=== PATIENT | female | born 1940 | race Caucasian/White ===

== ENCOUNTER → 2016-12-19 | Outpatient (CLI) | payer OTHER ==
[~2016-12-19] MED LIST: CALC1TAB25 PO; LEVO100T7 PO; MULT-513 PO; OREGCAP PO; PRLSR20 PO; SIMV10TA2 PO
[2016-12-19 13:20] LABS: THYROID STIMULATING HORMONE 0.546 uIu/ml (0.300-4.500)
== END | disposition home or self-care (01) ==
LOC: C.LABPBG 09:17
PROVIDERS: ATTEND Physician Assistant
DX: E03.9 Hypothyroidism, unspecified (principal)

== ENCOUNTER → 2017-02-01 | Outpatient (CLI) | payer OTHER ==
[2017-02-01 12:25] LABS: BASO % 0.2 %; BASO ABS # 0.02 K/uL (0-0.2); COMPLETE YES; EOS % 0.7 %; HEMATOCRIT 38.8 % (37-47); IG% 0.1 %; LYMPH % 40.2 %; LYMPH ABS # 3.54 K/uL (1.2-3.4); MEAN CELL VOLUME 93.7 fL (80-100); MEAN CORPUSCULAR HEMOGLOBIN 31.9 pg (25-34); MEAN PLATELET VOLUME 11.4 fL (7.4-10.4); MONO % 6.5 %; NEUT % 52.3 %; PLATELET COUNT 300 K/uL (130-400); RED BLOOD COUNT 4.14 M/uL (4.2-5.4); WHITE BLOOD COUNT 8.81 K/uL (4.8-10.8)
[2017-02-01 13:47] LABS: ALT/SGPT 19 U/L (12-78); AST/SGOT 17 U/L (15-37); BLOOD UREA NITROGEN 21 mg/dl (7-18); BUN/CREATININE RATIO 23.5 (10-20); CALCIUM 8.3 mg/dl (8.5-10.1); CARBON DIOXIDE 27 mmol/L (21-32); CHLORIDE 106 mmol/L (98-107); CREATININE 0.91 mg/dl (0.60-1.20); GLUCOSE 92 mg/dl (70-99); POTASSIUM 3.7 mmol/L (3.5-5.1); SODIUM 142 mmol/L (136-145)
[2017-02-01 13:50] LABS: ALB/GLOB RATIO 1.2 (0.9-2); ALKALINE PHOSPHATASE 66 U/L (45-117); CHOLESTEROL 202 mg/dl (0-200); HDL CHOLESTEROL 50 mg/dl; LDL CHOLESTEROL CALCULATED 121 mg/dl; TRIGLYCERIDES 157 mg/dl (0-150); VERY LOW DENSITY LIPOPROT CALC 31 mg/dl
[2017-02-01 13:55] LABS: THYROID STIMULATING HORMONE 1.06 uIu/ml (0.300-4.500)
== END | disposition home or self-care (01) ==
LOC: C.LABPBG 08:43
PROVIDERS: ATTEND Physician Assistant
DX: E03.9 Hypothyroidism, unspecified (principal); E78.5 Hyperlipidemia, unspecified; M85.80 Other specified disorders of bone density and structure, unspecified site; J45.909 Unspecified asthma, uncomplicated; S52.90XA Unspecified fracture of unspecified forearm, initial encounter for closed fracture; X58.XXXA Exposure to other specified factors, initial encounter

== ENCOUNTER → 2017-05-28 | Outpatient (CLI) | payer OTHER ==
[2017-05-28 12:12] LABS: CALCIUM 9.5 mg/dl (8.5-10.1)
[2017-05-28 12:27] LABS: THYROID STIMULATING HORMONE 0.759 uIu/ml (0.300-4.500)
== END | disposition home or self-care (01) ==
LOC: C.LABPBG 09:46
PROVIDERS: ATTEND Physician Assistant
DX: E03.9 Hypothyroidism, unspecified (principal); E83.51 Hypocalcemia

== ENCOUNTER → 2017-09-04 | Outpatient (CLI) | payer OTHER | END | disposition home or self-care (01) | LOC: C.LABPBG 11:37 | PROVIDERS: ATTEND Physician Assistant | DX: E03.9 Hypothyroidism, unspecified (principal) ==

== ENCOUNTER → 2017-11-29 | Day surgery (SDC) | payer OTHER ==
[2017-11-12 14:36] VITALS: BMI 27.0
[~2017-11-29] VITALS: Ht 162.6 cm; Wt 72.7 kg
[~2017-11-29] MED LIST changes: +CALC-214 PO; -CALC1TAB25 PO; +LIDOCAINE HCL 2% 2 ML VIAL (20MG/ML) ONE; -OREGCAP PO; +PHENYLEPHRINE 100MCG/ML 5ML SYR ONE; +PROPOFOL IV EMULSION 10 MG/ML 20 ML VIAL IV ONE; +SODIUM CHLORIDE 0.9% 500ML 500 ML IV ONE
[2017-11-29 12:47] VITALS: Ht 162.6 cm; Wt 72.7 kg
--- NOTE | 2017-11-29 12:50 | Endo History and Physical ---
History & Physical Date of Service: Nov 29, 2017. Chief Complaint: Screening Referring Physician: Dr. Rigo Rivera History of Present Illness 76 yo CF who presents for screening colonoscopy. Past Surgical History Hx Cardiac Surgery: No Hx Internal Defibrillator: No Hx Pacemaker: No Hx Abdominal Surgery: Yes (HYSTERECTOMY, [place]) Hx of Implantable Prosthesis: No Hx Post-Op Nausea and Vomiting: No Hx Cancer Surgery: No Hx Thoracic Surgery: No Hx Orthopedic: No (EXTERNAL FIXATION OF RT DISTAL RADIUS) Hx Urinary Tract Surgery: No Family History None Social History Smoking Status: Never Smoker Hx Substance Use: No Hx Alcohol Use: No Allergies Coded Allergies: No Known Allergies (Unverified , 11/29/17) Current Medications Reported Home Medications Medications Dose Route/Sig Max Daily Dose Days Date Category Calcium & Magnesium (Calcium W/ Magnesium) 1 Tab Tab 1 Tab PO DAILY AFTER LUNCH 11/12/17 Reported Levothyroxine Sodium 100 Mcg Tab 100 Mcg PO QAM 12/17/15 Reported Mvi With Minerals (Multivitamins/Minerals) Tab 1 Tab PO QAM 12/17/15 Reported Zocor (Simvastatin) 10 Mg Tab 10 Mg PO QPM 12/17/15 Reported Prilosec (Omeprazole) 20 Mg Capcr 20 Mg PO QAM 12/17/15 Reported Vital Signs Weight (Kilograms): 72.73 Height (Feet): 5 Height (Inches): 4 Physical Exam General Appearance: WD/WN, no apparent distress Respiratory/Chest: Auscultation: breath sounds normal Cardiovascular: Heart Auscultation: RRR Abdomen: Bowel Sounds: normal Inspection & Palpation: soft, non-distended, no tenderness, guarding & rebound Assessment and Plan Assessment: 76 yo CF who presents for screening colonoscopy. Plan: Proceed with colonoscopy.
--- NOTE | 2017-11-29 14:00 | Discharge Instructions ---
Endoscopy Patient Instructions Date / Procedure(s) Performed Nov 29, 2017. Colonoscopy Allergy Information Coded Allergies: No Known Allergies (Unverified , 11/29/17) Discharge Date / Findings Nov 29, 2017. Colon polyps Diverticulosis Internal hemorrhoids Medication Instructions Stopped Medication(s): STOPPED ALL MEDICATION OK to resume all medications today as prescribed Reported Home Medications Medications Dose Route/Sig Max Daily Dose Days Date Category Calcium & Magnesium (Calcium W/ Magnesium) 1 Tab Tab 1 Tab PO DAILY AFTER LUNCH 11/12/17 Reported Levothyroxine Sodium 100 Mcg Tab 100 Mcg PO QAM 12/17/15 Reported Mvi With Minerals (Multivitamins/Minerals) Tab 1 Tab PO QAM 12/17/15 Reported Zocor (Simvastatin) 10 Mg Tab 10 Mg PO QPM 12/17/15 Reported Prilosec (Omeprazole) 20 Mg Capcr 20 Mg PO QAM 12/17/15 Reported Provider Instructions Activity Restrictions - No exercising or heavy lifting for 24 hours. - Do not drink alcohol the day of the procedure. - Do not drive a car or operate machinery until the day after the procedure. - Do not make any important decisions or sign important papers in 24 hours after the procedure. Following Day: - Return to full activity which may include returning to work/school. Diet Start your diet with liquids and light foods (jello, soup, juice, toast). Then eat your usual diet if not nauseated. Treatment For Common After Affects For mild abdominal pain, bloating, or excessive gas: - Rest - Eat lightly - Lie on right side Follow-Up Information Follow-up with DR. DAVID SHORT as scheduled Anesthesia Information What You Should Know You have had a procedure that required some medicine to reduce anxiety and discomfort. This treatment is called moderate sedation. After receiving the treatment, you may be sleepy, but you will be able to breathe on your own. The effects of the treatment may last for several hours. Follow these instructions along with Activity/Diet recommendations noted above: * Do NOT do anything where dizziness or clumsiness would be dangerous. * Rest quietly at home today, then you can be up and about tomorrow. * Have a responsible person stay with you the rest of today. * You may have had an I.V. today. If so, you may take the dressing off later today. Recommendations Call your doctor if: * Trouble breathing * Continuous vomiting for more than 24 hours * Temperature above 101 degrees * Severe abdominal pain or bloating * Pain not relieved by pain medicine ordered * There is increased drainage or redness from any incision * A large amount of rectal bleeding greater than 2-3 tablespoons. (If you had a polyp/s removed or have hemorrhoids, a small amount of blood - from the rectum is to be expected.) * You have any unanswered questions or concerns. IN THE EVENT OF A SERIOUS EMERGENCY, GO TO THE NEAREST EMERGENCY ROOM Your discharge instructions were prepared by provider Esteban Dawson. Patient Instructions Signature Page Nallely Fidelina Patient (or Guardian) Signature/Date: I have read and understand the instructions given to me by my caregivers. Caregiver/RN/Doctor Signature/Date: The above-named patient and/or guardian has received patient instructions on this date. + Original Patient Signature Page (only) stays with chart. Please make copy for patient.
--- NOTE | 2017-11-29 14:07 | GI REPORT ---
Procedure Date: 11/29/2017 1:17 PM Procedure: Colonoscopy Indications: Screening for colorectal malignant neoplasm Medicines: Monitored Anesthesia Care Complications: No immediate complications. Estimated Blood Loss: Estimated blood loss: none. Procedure: Pre-Anesthesia Assessment: - Prior to the procedure, a History and Physical was performed, and patient medications and allergies were reviewed. The patient's tolerance of previous anesthesia was also reviewed. The risks and benefits of the procedure and the sedation options and risks were discussed with the patient. All questions were answered, and informed consent was obtained. Prior Anticoagulants: The patient has taken no previous anticoagulant or antiplatelet agents. ASA Grade Assessment: II - A patient with mild systemic disease. After reviewing the risks and benefits, the patient was deemed in satisfactory condition to undergo the procedure. After I obtained informed consent, the scope was passed under direct vision. Throughout the procedure, the patient's blood pressure, pulse, and oxygen saturations were monitored continuously. The scope was introduced through the anus and advanced to the terminal ileum. The colonoscopy was performed without difficulty. The patient tolerated the procedure well. The quality of the bowel preparation was good. The terminal ileum, ileocecal valve, appendiceal orifice, and rectum were photographed. Findings: The perianal and digital rectal examinations were normal. Three sessile polyps were found in the ascending colon. The polyps were 5 to 7 mm in size. These polyps were removed with a hot snare. Resection and retrieval were complete. Multiple small-mouthed diverticula were found in the sigmoid colon. Non-bleeding internal hemorrhoids were found during retroflexion. The hemorrhoids were small. Impression: - Three 5 to 7 mm polyps in the ascending colon, removed with a hot snare. Resected and retrieved. - Diverticulosis in the sigmoid colon. - Non-bleeding internal hemorrhoids. Recommendation: - Resume previous diet. - Continue present medications. - Await pathology results. - Return to primary care physician as previously scheduled. Esteban Dawson, DO 11/29/2017 2:06:49 PM This report has been signed electronically. Note Initiated On: 11/29/2017 1:17 PM I attest to the content of the Intraoperative Record and orders documented therein, exceptions below
[2017-11-29 14:15] VITALS: BP 123/57; PULSE 71; O2SAT 99
--- NOTE | 2017-11-29 14:15 | Anesthesiology Progress Note ---
Anesthesia Post Op Note Date & Time Nov 29, 2017 at 14:15 Vital Signs Pain Intensity: 0 Vital Signs Past 12 Hours Date Time Temp Pulse Resp B/P (MAP) Pulse Ox O2 Delivery O2 Flow Rate FiO2 11/29/17 14:00 66 18 122/64 (83) 98 Room Air 11/29/17 13:42 69 16 114/54 (74) 97 Room Air 11/29/17 12:54 36.8 63 18 147/77 (100) 98 Room Air Notes Mental Status: alert / awake / arousable, participated in evaluation Pt Amnestic to Procedure: Yes Nausea / Vomiting: adequately controlled Pain: adequately controlled Airway Patency, RR, SpO2: stable & adequate BP & HR: stable & adequate Hydration State: stable & adequate Anesthetic Complications: no major complications apparent
== END | disposition home or self-care (01) ==
LOC: C.GI 12:29
PROVIDERS: ATTEND Internal Medicine
DX: Z12.11 Encounter for screening for malignant neoplasm of colon (principal); D12.2 Benign neoplasm of ascending colon; K57.30 Diverticulosis of large intestine without perforation or abscess without bleeding; K63.89 Other specified diseases of intestine; K64.8 Other hemorrhoids; J45.909 Unspecified asthma, uncomplicated; G47.33 Obstructive sleep apnea (adult) (pediatric); K21.9 Gastro-esophageal reflux disease without esophagitis; M19.90 Unspecified osteoarthritis, unspecified site; Z90.710 Acquired absence of both cervix and uterus; Z90.49 Acquired absence of other specified parts of digestive tract

== ENCOUNTER → 2018-04-18 | Outpatient (CLI) | payer OTHER ==
[~2018-04-18] MED LIST changes: -LIDOCAINE HCL 2% 2 ML VIAL (20MG/ML) ONE; -PHENYLEPHRINE 100MCG/ML 5ML SYR ONE; -PROPOFOL IV EMULSION 10 MG/ML 20 ML VIAL IV ONE; -SODIUM CHLORIDE 0.9% 500ML 500 ML IV ONE
[2018-04-18 15:52] LABS: ALBUMIN 3.8 gm/dl (3.4-5.0); ALKALINE PHOSPHATASE 66 U/L (45-117); ALT/SGPT 21 U/L (12-78); AST/SGOT 23 U/L (15-37); BLOOD UREA NITROGEN 19 mg/dl (7-18); CALCIUM 8.8 mg/dl (8.5-10.1); CARBON DIOXIDE 24 mmol/L (21-32); CHOLESTEROL 150 mg/dl (0-200); CREATININE 1.01 mg/dl (0.60-1.20); GLUCOSE 93 mg/dl (70-99); LDL CHOLESTEROL CALCULATED 80 mg/dl; POTASSIUM 4.2 mmol/L (3.5-5.1); SODIUM 140 mmol/L (136-145); TOTAL PROTEIN 7.3 gm/dl (6.4-8.2)
== END | disposition home or self-care (01) ==
LOC: C.LABPBG 07:55
PROVIDERS: ATTEND Physician Assistant
DX: E03.9 Hypothyroidism, unspecified (principal); E78.5 Hyperlipidemia, unspecified; M85.80 Other specified disorders of bone density and structure, unspecified site; J45.909 Unspecified asthma, uncomplicated; S52.90XA Unspecified fracture of unspecified forearm, initial encounter for closed fracture; X58.XXXA Exposure to other specified factors, initial encounter; E83.51 Hypocalcemia

== ENCOUNTER 2024-09-11 13:32 | Inpatient (IN) ==
--- NOTE | 2024-09-11 14:03 | Emergency Department Note ---
Impression & Plan Chronic lymphocytic leukemia, Splenic infarct, Abdominal pain, Fatigue, Leukocytosis, Pain, Decreased energy ED Provider Note CHIEF COMPLAINT: Abdominal pain HISTORY OF PRESENTING ILLNESS: The patient is an 83-year-old female with a history of CLL presents to the emergency department today with her daughter regarding left upper quadrant pain. The daughter confirms that her mother's pain is significantly worse today. Daughter also confirms that mother has been feeling very fatigued and laying around often, no longer has much of an appetite and she is only drinking ensures, abdominal pain is not controlled with 5 mg oxycodone prescribed by oncologist, and that she is not able to project her voice as well. Denies fevers, chest pain, shortness of breath, nausea, vomiting, diarrhea, constipation. REVIEW OF SYSTEMS: See HPI for pertinent positives and pertinent negatives. ALLERGIES: Amitriptyline, nortriptyline MEDICATIONS: See below PAST MEDICAL HISTORY: See below PHYSICAL EXAM: VITALS: Vitals are noted on the nurse's note and reviewed by myself. Vital signs stable. GENERAL: 83-year-old female, in no acute distress, nondiaphoretic, well- developed well-nourished. SKIN: Capillary reflex less than 2 seconds. HEENT: Normocephalic. PERRLA. EOMI. Nares patent. Mucous membranes moist. Neck is supple without nuchal rigidity. HEART: Regular rate and rhythm without murmurs gallops or rubs. LUNGS: Clear to auscultation bilaterally without wheezes, rales or rhonchi. No retractions or accessory muscle use. ABDOMEN: Positive bowel sounds x 4. Normal tympanic percussion. Tenderness to left upper quadrant palpation. Soft, without masses or organomegaly. No guarding or rebound tenderness. Patient appears uncomfortable. MUSCULOSKELETAL: No gross musculoskeletal defects. No pedal edema. No calf tenderness. NEURO: Patient was alert and oriented to person place and time. No focal neurological deficits. DIFFERENTIAL DIAGNOSIS: appendicitis, diverticulitis, bowel obstruction, inflammatory bowel disease, renal colic, PUD, biliary pathology, pancreatitis, mesenteric ischemia, aortic pathology, infection, genitourinary, UTI, perforated viscus, malignancy complication, among others. ED COURSE AND MEDICAL DECISION MAKING: HISTORY FROM INDEPENDENT HISTORIAN: The patient, the patient's two daughters. MEDICATIONS GIVEN: Oxycodone 5 mg INTERPRETATION OF LABS: I interpreted the labs with full lab results as below in the lab section of this note. Pertinent lab results discussed in the MDM section below. INTERPRETATION OF IMAGING: Imaging studies were interpreted by myself and read by radiology as per the imaging section of this note. CT abdomen and pelvis IV contrast - acute splenic infarct, new from previous scan completed on 09/05/2024 with chronic splenic vein occlusion. - Disease of the lower chest and abdomen -generally unchanged from previous scan completed on 09/05/2024. - Healing subacute nondisplaced pathological fracture of the left lateral 10th rib. - Small left pleural effusion is unchanged. EXTERNAL RECORDS REVIEWED: Previous CT scan reviewed. CHRONIC MEDICAL/SOCIAL CONDITIONS AFFECTING CARE: CLL and other chronic conditions. ESCALATION OF CARE CONSIDERED: Escalation of care was considered due to the patient's presentation and new onset left upper abdominal pain as well as progressive CLL disease. With the daughter confirming the patient's newer onset fatigue, lethargy, lack of appetite, as well as daughter confirming her not feeling well to project her voice and feelings as well admission was also considered. I did confirm with Dr. Dietz that her patient was being seen here in the emergency department and she updated me on the patient's care and that her disease has been progressing rapidly. She also voiced wanting the patient to be admitted for overnight care, monitoring, pain management, and potential biopsy completed in the hospital tomorrow. CONSULTATIONS: [facility] hospitalist team -consultation was placed regarding overnight stay and management of the patient. I had a thorough discussion with the admitting doctor regarding her progressive CLL disease as well as my discussion had with Dr. Dietz, new onset weakness/fatigue, minimal food intake, as well as new CT finding of a splenic infarct. I did discuss the CT findings with my attending in the emergency department Dr. Armijo who confirmed that splenic infarct is not a finding that is surgically emergent or needing attention at this time. We did discuss that this new onset pain may be related to her large infiltrative splenic mass but that further investigation and management is required in the inpatient setting at this time. Dr. Dietz - I did personally reach out provider regarding her patient's care. She stated that her disease is progressing rapidly and she was actually scheduled for a biopsy next week. I explained to her the new onset presenting symptoms and her presentation in the emergency department. Her and I had a thorough discussion regarding her management and both agreed to admission, pain control, and monitoring overnight. She stated that she would place orders for biopsies planned for next week to be done in the hospital hopefully tomorrow. I did notify her that many plans changed I would let her know. MDM SUMMARY: The patient is an 83-year-old female with a history of progressing CLL that presents to the emergency department with her daughter regarding left upper abdominal pain. The daughter confirms that this is a new onset worsening pain but does confirm that she at baseline has some pain due to large infiltrative splenic mass. Patient looks in moderate discomfort on physical exam holding left abdomen. States she took 5 mg oxycodone this morning and after discussion of pain management requests another. On physical exam abdomen is tender in the left upper quadrant. Soft without guarding or rebound. Patient is afebrile and vitals are stable. Due to new onset worsening pain another CT abdomen and pelvis was ordered. Daughter confirms that they see Dr. Dietz which can be seen in detail above. The patient's daughters stated that they really trust her opinion and had her that she was coming into the emergency department today. I informed them of my conversation that I had with her regarding the patient's care. They also agreed to plans of admitting their mother overnight for further investigation of pain, management, due to new onset weakness/fatigue. CT scan abdomen pelvis showed similar findings from previous scan on 09/05/2024. The patient does have a large infiltrative splenic mass that she was aware of. 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 This finding was reviewed with my attending Dr. Armijo who confirmed that this is not acutely emergent or surgical at this time. This was also reported to the hospitalist team upon admission. Basic labs, lipase, and urinalysis were also ordered upon arrival to the emergency department. White blood cell count elevated 78.44 -this has been chronically elevated due to CLL. No electrolyte abnormalities. BUN elevated 28 - compared to previous lab results and between 25 and 28 within the last year. Lipase normal. Urinalysis demonstrates trace urine protein, urine blood, 2+ urine leukocyte esterase, >50 WBC, >20 RBC, urine bacteria 4+, and calcium oxalate crystals present. Patient denies all urinary symptoms such as urgency, frequency, and pain with urination. I did reevaluate stated that her pain was feeling better after taking the oral oxycodone She stated that she was more comfortable laying down in bed. I had a discussion with both daughters regarding my admission discussion with the hospitalist team. I thoroughly reviewed lab results and image findings that were obtained here in the emergency department with the patient and her daughters. I did inform them that the remainder of her care would be up to the discretion of the hospitalist team in which she was admitted to. I also informed them that Dr. Dietz put in orders for the biopsies that she was supposed to have next week and attempt to get them in the hospital. They were able to ask questions. At this time the patient was handed over to the hospitalist team, vitals were stable. DIAGNOSIS: Chronic lymphocytic leukemia, splenic infarct, abdominal pain, fatigue, leukocytosis, pain, decreased energy The chart was completed utilizing [employer] Speech voice recognition software. Grammatical errors, random word insertions, pronoun errors, and incomplete sentences are an occasional consequence of this system due to software limitations, ambient noise, and hardware issues. Any formal questions or concerns about the content, text, or information contained within the body of this dictation should be directly addressed to the provider for clarification. Past Med/Surg History Problem List (Updated 09/11/24 @ 19:55 by aJnis Cruz PA-C) Decreased energy (Acute) Pain (Acute) Leukocytosis (Acute) Fatigue (Acute) Abdominal pain (Acute) Splenic infarct (Acute) Chronic lymphocytic leukemia (Acute) Splenic infarct SALAS (iron deficiency anemia) Osteoporosis Vascular dementia CLL (chronic lymphocytic leukemia) (07/2021) Prediabetes Urinary incontinence Asthma Diverticulosis Dyslipidemia Gastroesophageal reflux disease Hearing loss Hypothyroidism Internal hemorrhoids Irritable bowel syndrome Melanosis coli Mild cognitive impairment Obstructive sleep apnea Tinnitus Tubular adenoma of colon Medical History Hx of compression fracture of spine (~05/19/23) lumbar compression fracture-L1 History of colon polyps Lumbar compression fracture ~04/2023 Poor historian Surgical History Hx of colonoscopy H/O kyphoplasty (05/2023) L1, L4 H/O cataract extraction S/P nasal surgery excision of cyst R side of nose S/P ORIF (open reduction internal fixation) fracture R wrist S/P hysterectomy S/P cholecystectomy Family History Father Prostate cancer Mother Lung disease Denies family history of Ovarian cancer Myocardial infarction Breast cancer Colorectal cancer Social History Smoking Status: Never smoker Second Hand Exposure: No; Do You Dip or Chew Tobacco: No; Hx Alcohol Use: No Hx Substance Use: No Preferred Language: Macedonian Communication Ability: Effective Communication Ability Comment: mild cognitive impairment Visual Impairment: No Limitations Hearing Ability: Hard of Hearing Manager Chinese Required: No Beliefs That Will Affect Care: None marital status: Current Living Situation: Spouse current occupational status: retired Feels Safe at Home: Yes Childhood Exposure to Second-Hand Smoke: No Diet: regular Diet Comment: Regular caffeine: Yes during the past year weight has: remained stable Dental Care, Regularly: Yes Physical Activity Frequency: 5-6 Times per Week Seatbelt Use: always Sunscreen Use: No Assistive Devices: Glasses Allergies Allergies Allergy/AdvReac Type Severity Reaction Status Date / Time amitriptyline [From Elavil] AdvReac Unknown CAN'T Verified 06/06/24 09:07 REMEMBER nortriptyline [From Pamelor] AdvReac Unknown CAN'T Verified 06/06/24 09:07 REMEMBER Home Meds Home Medications Medication Instructions Recorded Confirmed aspirin 81 mg capsule 81 mg PO HS 06/02/24 09/11/24 ibandronate 150 mg tablet 150 mg PO UD 06/19/24 09/11/24 mirtazapine 15 mg tablet 15 mg PO HS 07/30/24 09/11/24 zanubrutinib 80 mg capsule 160 mg PO BID 07/30/24 09/11/24 (Brukinsa) allopurinol 300 mg tablet 300 mg PO DAILY 09/11/24 09/11/24 donepezil 10 mg tablet 10 mg PO HS 09/11/24 09/11/24 megestrol 40 mg tablet 40 mg PO BID 09/11/24 09/11/24 omeprazole 40 mg capsule,delayed 40 mg PO HS 09/11/24 09/11/24 release oxycodone 5 mg tablet 5 mg PO .EVERY 4-6 HRS PRN Pain 09/11/24 09/11/24 Previous Rx's Medication Instructions Recorded albuterol sulfate 90 mcg/actuation 2 puff inhalation Q6H PRN 06/23/24 aerosol inhaler shortness of breath or wheezing #8.5 grams levothyroxine 75 mcg tablet 75 mcg PO DAILY #30 tabs 08/26/24 Results & Data (ED) Vital Signs Vital Signs - 24 hr 09/11/24 13:38 09/11/24 15:07 09/11/24 16:20 Temperature 36.5 C Temperature Source Temporal Artery Scan Pulse Rate 86 Pulse Rate [Finger] 75 83 Respiratory Rate 20 16 16 Respiratory Effort / Characteristics Non-Labored Spontaneous Non-Labored Spontaneous Non-Labored Spontaneous Respiratory Depth Normal Normal Normal Respiratory Pattern Regular Regular Blood Pressure 125/70 Blood Pressure [Right Arm] 139/85 126/68 Blood Pressure Mean 88 Blood Pressure Mean [Right Arm] 103 87 Blood Pressure Position [Right Arm] Semi-fowlers Semi-fowlers Pulse Oximetry 98 99 98 Oxygen Delivery Method Room Air Room Air Room Air Sepsis Recent Fever Within 48 Hours No Sepsis New/Unexplained Change in Mental Status No Sepsis Action Taken by Nursing No Action Required 09/11/24 17:41 09/11/24 19:17 Temperature Temperature Source Pulse Rate Pulse Rate [Finger] 83 85 Respiratory Rate 18 16 Respiratory Effort / Characteristics Non-Labored Spontaneous Respiratory Depth Normal Normal Respiratory Pattern Regular Blood Pressure Blood Pressure [Right Arm] 106/50 L 111/66 Blood Pressure Mean Blood Pressure Mean [Right Arm] 68 81 Blood Pressure Position [Right Arm] Pulse Oximetry 97 97 Oxygen Delivery Method Room Air Room Air Sepsis Recent Fever Within 48 Hours Sepsis New/Unexplained Change in Mental Status Sepsis Action Taken by Nursing Laboratory Data 09/11/24 14:35 09/11/24 14:35 Lab Results 09/11/24 09/11/24 Range/Units 14:35 16:21 WBC 78.44 H* (4.8-10.8) K/ul RBC 4.14 L (4.20-5.40) M/uL Hgb 12.4 (12.0-16.0) g/dl Hct 39.0 (37.0-47.0) % MCV 94.2 (80.0-100.0) fL MCH 30.0 (25.0-34.0) pg MCHC 31.8 L (32.0-36.0) g/dL RDW Std Deviation 48.4 H (36.4-46.3) fL RDW Coeff of Harsh 14.1 (11.5-14.5) % Plt Count 381 (130-400) K/uL MPV 12.0 (9.4-12.4) fL Immature Gran % (Auto) 0.3 % Neut % (Auto) 13.7 % Lymph % (Auto) 84.0 % Ransom % (Auto) 1.6 % Eos % (Auto) 0.3 % Baso % (Auto) 0.1 % Neut # (Auto) 10.74 H (1.40-6.50) K/uL Lymph # (Auto) 65.87 H (1.20-3.40) K/uL Ransom # (Auto) 1.29 H (0.11-0.59) K/uL Eos # (Auto) 0.23 (0.00-0.50) K/uL Baso # (Auto) 0.10 (0.00-0.20) K/uL Immature Gran # (Auto) 0.21 H (0.01-0.20) K/uL Sodium 137 (136-145) mmol/L Potassium 4.0 (3.5-5.1) mmol/L Chloride 100 (98-107) mmol/L Carbon Dioxide 29 (21-32) mmol/L Anion Gap 8 (3-11) BUN 28 H (6-23) mg/dl Creatinine 0.76 (0.6-1.2) mg/dl Est Cr Clr Drug Dosing 45.6 ml/min eGFR 77.22 BUN/Creatinine Ratio 36.8 H (10-20) Glucose 163 H (70-99(Fasting)) mg/dl Uric Acid 3.1 (2.6-7.2) mg/dl Calcium 9.5 (8.6-10.3) mg/dl Total Bilirubin 0.3 (0.2-1.0) mg/dl AST 18 (13-39) U/L ALT 8 (7-52) U/L Alkaline Phosphatase 67 (34-104) U/L Total Protein 7.2 (6.0-8.3) gm/dl Albumin 3.8 (3.4-5.0) gm/dl Globulin 3.4 (2.5-4.0) gm/dl Albumin/Globulin Ratio 1.1 (0.9-2) Lipase 11 (11-82) U/L Urine Color Yellow Urine Appearance Cloudy A (Clear) Urine pH 6.0 (4.5-7.5) Ur Specific [place] 1.038 H (1.000-1.030) Urine Protein Trace H (Negative) Urine Glucose (UA) Negative (Negative) Urine Ketones Negative (Negative) Urine Blood 2+ H (Negative) Urine Nitrite Negative (Negative) Urine Bilirubin Negative (Negative) Urine Urobilinogen Negative (Negative) Ur Leukocyte Esterase 2+ H (Negative) Urine WBC (Auto) >50 H (0-5) /hpf Urine RBC (Auto) >20 H (0-2) /hpf U Hyaline Cast (Auto) 0-2 (0-2) /lpf U Epithel Cells (Auto) 0-2 (0-2) /hpf Urine Bacteria (Auto) 4+ H (None Seen) Calcium Oxalate Crystal Present A (None Prsent) Administered Medications Discontinued Medications Ioversol (Optiray 320 100ml) 93 ml IV ONCE ONE Stop: 09/11/24 15:42 Last Admin: 09/11/24 15:42 Dose: 93 ml Documented By: BABITA Oxycodone HCl (Oxycodone Hcl Ir 5 Mg Tab (Immediate Release)) 5 mg PO NOW STA Stop: 09/11/24 14:17 Last Admin: 09/11/24 15:12 Dose: 5 mg Documented By: ONESIMO Imaging Data Radiologist's Impression: Abdomen/Pelvis CT 09/11/24 14:[address] WITH IV CONTRAST CT DOSE: 520.21 mGy.cm HISTORY: Left-sided abdominal pain in a patient with history of CLL left sided ab pain TECHNIQUE: Multiaxial CT images of the abdomen and pelvis were performed following the IV administration of 93 cc of Optiray, A dose lowering technique was utilized adhering to the principles of ALARA. COMPARISON STUDY: 09/05/2024, 06/25/2024. FINDINGS: Trace left pleural effusion. Enhancing subpleural/intercostal masses are redemonstrated This includes a 3.5 cm mass on image 45 series 3 (previously 1.5 cm on the June 19 study) and a 3.7 cm mass on image 101 series 3 (previously subcentimeter on the June 19 study). No pneumatosis or pneumoperitoneum. Unremarkable liver. Cholecystectomy. Patent portal vein. Duodenal diverticula. Symmetric enhancement of the kidneys. Bilateral renal sinus cysts. No definite hydronephrosis. Chronic occlusion of the splenic vein. Large infiltrative splenic mass measuring 10 x 6 x 6 cm on image 82 series 7 is similar in size to prior. Again, this demonstrates extracapsular extension with mild adjacent inflammatory stranding. There is progressive linear well- demarcated decreased attenuation of the spleen as seen on image 81 series 3 which is new/progressed from prior. A 3.4 cm mass, anterior to the spleen redemonstrated. Pathologic lymphadenopathy with areas of central necrosis are again seen. This includes an index periaortic 2.0 x 2.1 cm lymph node on image 139. Adenopathy within the silvia hepatis includes a 4.6 x 3.4 cm lesion on image 95. A 3.4 x 2.9 x 3.8 cm lesion within the left retroperitoneum, inferior and posterior to the left kidney again seen on image 179. Urinary bladder wall thickening with partial distention. Hysterectomy. Right adnexal 3.6 cm cystic lesion is unchanged. Atherosclerosis of the aorta without aneurysm. Soft tissue thickening within the right perineum/vaginal introitus distribution is asymmetric on the right and similar to prior. Pelvic floor relaxation. Colonic diverticulosis. No bowel obstruction or bowel wall thickening. Normal appendix. Healing subacute nondisplaced pathologic fracture of the lateral left 10th rib. Chronic L1 and L4 compression deformities with kyphoplasty changes. IMPRESSION: 1. Acute splenic infarct, new from 09/05/2024 with chronic splenic vein occlusion. 2. Disease of the lower chest and abdomen are redemonstrated as above, generally unchanged from the 09/05/2024 study which showed progression compared to 06/25/2024. 3. Healing subacute nondisplaced pathologic fracture of the lateral left 10th rib. 4. Small left pleural effusion is unchanged. 5. Additional findings as above. ACT 112: Negative or not required by law. The above report was generated using voice recognition software. It may contain grammatical, syntax or spelling errors. Electronically signed by: Donny Morales M.D. 09/11/2024 4:03 PM Discharge Plan Visit Data Chief Complaint: Abdominal Pain Stated Complaint: REF BY DOC, ABD PAIN, WEAKNESS ED Provider: David Armijo ED Midlevel Provider: Janis Cruz Discharge Problem: Chronic lymphocytic leukemia, Splenic infarct, Abdominal pain, Fatigue, Leukocytosis, Pain, Decreased energy Patient Disposition: Admitted As Inpatient Condition: Good Forms Stand Alone Forms: My [facility] Quizrr Prescriptions Prescriptions: No Action Brukinsa 80 mg capsule 160 mg PO BID mirtazapine 15 mg tablet 15 mg PO HS albuterol sulfate 90 mcg/actuation HFA aerosol inhaler 2 puff inhalation Q6H PRN (Reason: shortness of breath or wheezing) Qty: 8.5 1RF levothyroxine 75 mcg tablet 75 mcg PO DAILY Qty: 30 3RF ibandronate 150 mg tablet 150 mg PO UD Rx Instructions: 150 mg po monlthy no fill history available allopurinol 300 mg tablet 300 mg PO DAILY oxycodone 5 mg tablet 5 mg PO .EVERY 4-6 HRS PRN (Reason: Pain) omeprazole 40 mg capsule,delayed release(DR/EC) 40 mg PO HS megestrol 40 mg tablet 40 mg PO BID donepezil 10 mg tablet 10 mg PO HS aspirin 81 mg Capsule 81 mg PO HS Referrals Referrals: Ale Aguilera DO [Primary Care Provider] - Discharge Problem: Abdominal pain Qualifiers: Abdominal location: left upper quadrant Qualified Code(s): R10.12 - Left upper quadrant pain Fatigue Qualifiers: Fatigue type: unspecified Qualified Code(s): R53.83 - Other fatigue Leukocytosis Qualifiers: Leukocytosis type: unspecified Qualified Code(s): D72.829 - Elevated white blood cell count, unspecified
[2024-09-11 15:12] LABS: Albumin Globulin Ratio 1.1 (0.9-2); Albumin Level 3.8 gm/dl (3.4-5.0); BUN Creatinine Ratio 36.8 (10-20); Bilirubin,Total 0.3 mg/dl (0.2-1.0); Calcium 9.5 mg/dl (8.6-10.3); Creatinine Clr Calc Pharmacy 45.6 ml/min; Globulin 3.4 gm/dl (2.5-4.0); Total Protein 7.2 gm/dl (6.0-8.3); Uric Acid 3.1 mg/dl (2.6-7.2)
[2024-09-11] MEDS: oxyCODONE HCL IR 5 MG TAB (IMMEDIATE RELEASE) PO STA (15:12)
[2024-09-11] MEDS: OPTIRAY 320 100ml IV ONE (15:42)
[2024-09-11 15:57] LABS: Basophils % (auto) 0.1 %; Eosinophils # (auto) 0.23 K/uL (0.00-0.50); Eosinophils % (auto) 0.3 %; Hemoglobin 12.4 g/dl (12.0-16.0); Immature Granulocytes # (auto) 0.21 K/uL (0.01-0.20); Immature Granulocytes % (auto) 0.3 %; Lymphocytes # (auto) 65.87 K/uL (1.20-3.40); Mean Corpuscular Hgb Conc 31.8 g/dL (32.0-36.0); Mean Corpuscular Volume 94.2 fL (80.0-100.0); Monocytes # (auto) 1.29 K/uL (0.11-0.59); Monocytes % (auto) 1.6 %; Neutrophils # (auto) 10.74 K/uL (1.40-6.50); Neutrophils % (auto) 13.7 %; Platelet Count 381 K/uL (130-400); RDW Coefficient of Variation 14.1 % (11.5-14.5); RDW Standard Deviation 48.4 fL (36.4-46.3); Red Blood Count 4.14 M/uL (4.20-5.40); White Blood Count 78.44 K/ul (4.8-10.8)
--- NOTE | 2024-09-11 16:04 | CT Scan Report ---
ABDOMEN AND PELVIS CT WITH IV CONTRAST CT DOSE: 520.21 mGy.cm HISTORY: Left-sided abdominal pain in a patient with history of CLL left sided ab pain TECHNIQUE: Multiaxial CT images of the abdomen and pelvis were performed following the IV administrat ion of 93 cc of Optiray, A dose lowering technique was utilized adhering to the principles of ALARA. COMPARISON STUDY: 09/05/2024, 06/25/2024. FINDINGS: Trace left pleural effusion. Enhancing subpleural/intercostal masses are redemonstrated Thi s includes a 3.5 cm mass on image 45 series 3 (previously 1.5 cm on the June 19 study) and a 3.7 c m mass on image 101 series 3 (previously subcentimeter on the June 19 study). No pneumatosis or p neumoperitoneum. Unremarkable liver. Cholecystectomy. Patent portal vein. Duodenal diverticula. Symme tric enhancement of the kidneys. Bilateral renal sinus cysts. No definite hydronephrosis. Chronic occ lusion of the splenic vein. Large infiltrative splenic mass measuring 10 x 6 x 6 cm on image 82 series 7 is similar in size to pr ior. Again, this demonstrates extracapsular extension with mild adjacent inflammatory stranding. Ther e is progressive linear well-demarcated decreased attenuation of the spleen as seen on image 81 serie s 3 which is new/progressed from prior. A 3.4 cm mass, anterior to the spleen redemonstrated. Patholo gic lymphadenopathy with areas of central necrosis are again seen. This includes an index periaortic 2.0 x 2.1 cm lymph node on image 139. Adenopathy within the silvia hepatis includes a 4.6 x 3.4 cm les ion on image 95. A 3.4 x 2.9 x 3.8 cm lesion within the left retroperitoneum, inferior and posterior to the left kidney again seen on image 179. Urinary bladder wall thickening with partial distention. Hysterectomy. Right adnexal 3.6 cm cystic le gino is unchanged. Atherosclerosis of the aorta without aneurysm. Soft tissue thickening within the r ight perineum/vaginal introitus distribution is asymmetric on the right and similar to prior. Pelvic floor relaxation. Colonic diverticulosis. No bowel obstruction or bowel wall thickening. Normal appen ghada. Healing subacute nondisplaced pathologic fracture of the lateral left 10th rib. Chronic L1 and L 4 compression deformities with kyphoplasty changes. IMPRESSION: 1. Acute splenic infarct, new from 09/05/2024 with chronic splenic vein occlusion. 2. Disease of the lower chest and abdomen are redemonstrated as above, generally unchanged from the study which showed progression compared to 06/25/2024. 3. Healing subacute nondisplaced pathologic fracture of the lateral left 10th rib. 4. Small left pleural effusion is unchanged. 5. Additional findings as above. ACT 112: Negative or not required by law. The above report was generated using voice recognition software. It may contain grammatical, syntax o r spelling errors. Electronically signed by: Donny Morales M.D. 09/11/2024 4:03 PM
--- NOTE | 2024-09-11 16:21 | Emergency Department Note ---
ED Visit Note I was consulted by the Advanced Practice Provider. The case was discussed at length. I personally made/approved the management plan and take responsibility for the patient management. I performed a substantive portion of the visit. This includes the aspects of: Patient is weak. She has a new finding of a splenic infarct on CT imaging. She does have pain in the left upper quadrant. The case was discussed with hematology/oncology. Hospitalization was felt warranted. .
[2024-09-11 16:52] LABS: Appearance Urine Cloudy (Clear); Bacteria Urine Automated 4+ (None Seen); Bilirubin Urine Negative (Negative); Blood Urine 2+ (Negative); Calcium Oxalate Crystals Urine Present (None Prsent); Cast Urine Automated 0-2 /lpf (0-2); Color Urine Yellow; Epithelial Cell Urine Auto 0-2 /hpf (0-2); Glucose Urine UA Negative (Negative); Ketones Urine Negative (Negative); Leukocyte Esterase Urine 2+ (Negative); Nitrite Urine Negative (Negative); Protein Urine Trace (Negative); RBC Urine Automated >20 /hpf (0-2); Specific Gravity Urine 1.038 (1.000-1.030); Urobilinogen Urine Negative (Negative); WBC Urine Automated >50 /hpf (0-5)
--- NOTE | 2024-09-11 18:42 | History & Physical Report ---
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 -pain control with oxycodone (2) CLL (chronic lymphocytic leukemia): Plan: -Heme-onc Dr. Dietz consulted -on zanubrutinib (3) Asthma: Plan: -albuterol prn (4) Hypothyroidism: Plan: -levothyroxine Plan Admit to Med-surg tele DVT px with heparin SQ PT/OT evaluation History of Present Illness Chief Complaint: Abdominal Pain Primary Care Provider: Ale Aguilera DO Pt is an 83 y/o female with pmh of CLL, asthma, HLD, hypothyroidism, IBS, who presents with increasing fatigue, generalized weakness and abdominal pain. Pt has been followed by Dr. Dietz for treatment of her CLL. 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 Pt complaining of left sided abdominal pain on examination over the past week. She has an appetite and denies any nausea or vomiting. She is being admitted for further pain control with follow up by heme-onc along with PT evaluation for ambulatory dysfunction due to progressive weakness. Allergies Allergy/AdvReac Type Severity Reaction Status Date / Time amitriptyline [From Elavil] AdvReac Unknown CAN'T Verified 06/06/24 09:07 REMEMBER nortriptyline [From Pamelor] AdvReac Unknown CAN'T Verified 06/06/24 09:07 REMEMBER Home Medications Medication Instructions Recorded Confirmed Type aspirin 81 mg capsule 81 mg PO HS 06/02/24 09/11/24 History ibandronate 150 mg tablet 150 mg PO UD 06/19/24 09/11/24 History albuterol sulfate 90 mcg/actuation 2 puff inhalation Q6H PRN 06/23/24 09/11/24 Rx aerosol inhaler shortness of breath or wheezing #8.5 grams mirtazapine 15 mg tablet 15 mg PO HS 07/30/24 09/11/24 History zanubrutinib 80 mg capsule 160 mg PO BID 07/30/24 09/11/24 History (Brukinsa) levothyroxine 75 mcg tablet 75 mcg PO DAILY #30 tabs 08/26/24 09/11/24 Rx allopurinol 300 mg tablet 300 mg PO DAILY 09/11/24 09/11/24 History donepezil 10 mg tablet 10 mg PO HS 09/11/24 09/11/24 History megestrol 40 mg tablet 40 mg PO BID 09/11/24 09/11/24 History omeprazole 40 mg capsule,delayed 40 mg PO HS 09/11/24 09/11/24 History release oxycodone 5 mg tablet 5 mg PO .EVERY 4-6 HRS PRN Pain 09/11/24 09/11/24 History Past Med/Surg History Problem List (Updated 09/11/24 @ 18:40 by Dewayne Ann MD) Splenic infarct SALAS (iron deficiency anemia) Osteoporosis Vascular dementia CLL (chronic lymphocytic leukemia) (07/2021) Prediabetes Urinary incontinence Asthma Diverticulosis Dyslipidemia Gastroesophageal reflux disease Hearing loss Hypothyroidism Internal hemorrhoids Irritable bowel syndrome Melanosis coli Mild cognitive impairment Obstructive sleep apnea Tinnitus Tubular adenoma of colon Medical History (Updated 09/11/24 @ 18:40 by Dewayne Ann MD) Hx of compression fracture of spine (~05/19/23) lumbar compression fracture-L1 History of colon polyps Lumbar compression fracture ~04/2023 Poor historian Surgical History Hx of colonoscopy H/O kyphoplasty (05/2023) L1, L4 H/O cataract extraction S/P nasal surgery excision of cyst R side of nose S/P ORIF (open reduction internal fixation) fracture R wrist S/P hysterectomy S/P cholecystectomy Family History Father Prostate cancer Mother Lung disease Denies family history of Ovarian cancer Myocardial infarction Breast cancer Colorectal cancer Social History Smoking Status: Never smoker Second Hand Exposure: No; Do You Dip or Chew Tobacco: No; Hx Alcohol Use: No Hx Substance Use: No Preferred Language: Tamazight Communication Ability: Effective Communication Ability Comment: mild cognitive impairment Visual Impairment: No Limitations Hearing Ability: Hard of Hearing Laboratory Chemist Required: No Beliefs That Will Affect Care: None marital status: Current Living Situation: Spouse current occupational status: retired Feels Safe at Home: Yes Childhood Exposure to Second-Hand Smoke: No Diet: regular Diet Comment: Regular caffeine: Yes during the past year weight has: remained stable Dental Care, Regularly: Yes Physical Activity Frequency: 5-6 Times per Week Seatbelt Use: always Sunscreen Use: No Assistive Devices: Glasses Review of Systems Review of Systems: CONST: Negative for fever, body aches and chills. HENT: Negative for neck pain/stiffness, headache, congestion, sore throat, swelling. EYES: Negative for discharge/pain or vision changes. RESP: Negative for cough/hemoptysis and shortness of breath. CV: Negative chest pain, difficulty breathing, palpitations. ABD: Negative pain, nausea, vomiting. : Negative increase frequency, dysuria, blood in urine or stool. MUSC: Negative for muscle aches, edema. SKIN: Negative rash, lesions/sores. NEURO: Negative headache, dizziness, weakness. Physical Exam Physical Exam: GENERAL APPEARANCE NAD, activity normal for age, well developed/ well nourished, no cyanosis, pallor, or diaphoresis. EYES lids/conjunctiva normal. EARS/NOSE/THROAT Mucous membranes moist, nares normal, lips/teeth normal uvula midline without oral pharyngeal erythema, exudate or swelling TMs normal bilaterally. No lymphangitis/lymphedema. HEAD/NECK normocephalic atraumatic, no facial trauma, neck is supple. RESPIRATORY respiratory effort normal, speaks in full sentences, no tripod position, no accessory muscle use. Lungs clear to auscultation without rhonchi, wheezes, rales CARDIAC Regular rate and rhythm, no edema. ABDOMINAL Soft, ND/NT. No evidence of fluid wave. No pulsatile masses on exam, rebound tenderness, Muro sign or pain over Mcburney's point. MUSCLES/EXTREMITIES No abnormal range of motion, no swelling. SKIN Warm, pink and dry. No rashes, dermatoses, petechiae or lesions. NEUROLOGICAL Speech is clear and appropriate. Normal level of consciousness. Gait and coordination are normal. 5/5 strength in all extremities. PSYCH Normal mood and affect. Judgement/competence is appropriate Results & Data Results & Data Vital Signs (Past 12 Hours) Vital Signs Temp Pulse Pulse Resp BP BP Pulse Ox 09/11/24 17:41 83 18 106/50 L 97 09/11/24 16:20 83 16 126/68 98 09/11/24 15:07 75 16 139/85 99 09/11/24 13:38 36.5 C 86 20 125/70 98 O2 Del Method 09/11/24 17:41 Room Air 09/11/24 16:20 Room Air 09/11/24 15:07 Room Air 09/11/24 13:38 Room Air Laboratory Results Abnormal lab results 09/11/24 09/11/24 Range/Units 14:35 16:21 WBC 78.44 H* (4.8-10.8) K/ul RBC 4.14 L (4.20-5.40) M/uL MCHC 31.8 L (32.0-36.0) g/dL RDW Std Deviation 48.4 H (36.4-46.3) fL Neut # (Auto) 10.74 H (1.40-6.50) K/uL Lymph # (Auto) 65.87 H (1.20-3.40) K/uL [place] # (Auto) 1.29 H (0.11-0.59) K/uL Immature Gran # (Auto) 0.21 H (0.01-0.20) K/uL BUN 28 H (6-23) mg/dl BUN/Creatinine Ratio 36.8 H (10-20) Glucose 163 H (70-99(Fasting)) mg/dl Urine Appearance Cloudy A (Clear) Ur Specific [place] 1.038 H (1.000-1.030) Urine Protein Trace H (Negative) Urine Blood 2+ H (Negative) Ur Leukocyte Esterase 2+ H (Negative) Urine WBC (Auto) >50 H (0-5) /hpf Urine RBC (Auto) >20 H (0-2) /hpf Urine Bacteria (Auto) 4+ H (None Seen) Calcium Oxalate Crystal Present A (None Prsent) Diagnostic Findings Abdomen/Pelvis CT 09/11/24 14:[address] WITH IV CONTRAST CT DOSE: 520.21 mGy.cm HISTORY: Left-sided abdominal pain in a patient with history of CLL left sided ab pain TECHNIQUE: Multiaxial CT images of the abdomen and pelvis were performed following the IV administration of 93 cc of Optiray, A dose lowering technique was utilized adhering to the principles of ALARA. COMPARISON STUDY: 09/05/2024, 06/25/2024. FINDINGS: Trace left pleural effusion. Enhancing subpleural/intercostal masses are redemonstrated This includes a 3.5 cm mass on image 45 series 3 (previously 1.5 cm on the June 19 study) and a 3.7 cm mass on image 101 series 3 (previously subcentimeter on the June 19 study). No pneumatosis or pneumoperitoneum. Unremarkable liver. Cholecystectomy. Patent portal vein. Duodenal diverticula. Symmetric enhancement of the kidneys. Bilateral renal sinus cysts. No definite hydronephrosis. Chronic occlusion of the splenic vein. Large infiltrative splenic mass measuring 10 x 6 x 6 cm on image 82 series 7 is similar in size to prior. Again, this demonstrates extracapsular extension with mild adjacent inflammatory stranding. There is progressive linear well- demarcated decreased attenuation of the spleen as seen on image 81 series 3 which is new/progressed from prior. A 3.4 cm mass, anterior to the spleen rede monstrated. Pathologic lymphadenopathy with areas of central necrosis are again seen. This includes an index periaortic 2.0 x 2.1 cm lymph node on image 139. Adenopathy within the silvia hepatis includes a 4.6 x 3.4 cm lesion on image 95. A 3.4 x 2.9 x 3.8 cm lesion within the left retroperitoneum, inferior and posterior to the left kidney again seen on image 179. Urinary bladder wall thickening with partial distention. Hysterectomy. Right adnexal 3.6 cm cystic lesion is unchanged. Atherosclerosis of the aorta without aneurysm. Soft tissue thickening within the right perineum/vaginal introitus distribution is asymmetric on the right and similar to prior. Pelvic floor relaxation. Colonic diverticulosis. No bowel obstruction or bowel wall thickening. Normal appendix. Healing subacute nondisplaced pathologic fracture of the lateral left 10th rib. Chronic L1 and L4 compression deformities with kyphoplasty changes. IMPRESSION: 1. Acute splenic infarct, new from 09/05/2024 with chronic splenic vein occlusion. 2. Disease of the lower chest and abdomen are redemonstrated as above, generally unchanged from the 09/05/2024 study which showed progression compared to 06/25/2024. 3. Healing subacute nondisplaced pathologic fracture of the lateral left 10th rib. 4. Small left pleural effusion is unchanged. 5. Additional findings as above. ACT 112: Negative or not required by law. The above report was generated using voice recognition software. It may contain grammatical, syntax or spelling errors. Electronically signed by: Donny Morales M.D. 09/11/2024 4:03 PM Code Status & VTE Plan Code Status Full code VTE Prophylaxis Plan VTE Prophylaxis will be ordered: Yes PG Care Time/CCT Total # of Minutes Spent Total Time Spent with Patient: Total time spent is greater than 50% in coordination of care (as documented) at patient's floor/unit and/or counseling patient: Coding Level of Care Code 07866 INT INP/OBS CARE 2/55MIN Diagnoses Splenic infarct D73.5 CLL (chronic lymphocytic leukemia) C91.10 Asthma J45.909 Hypothyroidism E03.9
--- NOTE | 2024-09-11 19:30 | Oncology Consultation ---
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 -Recommend obtaining biopsy of soft tissue rib lesion as well as bone marrow biopsy tomorrow -Regarding splenic vein infarct, would benefit from anticoagulation however would hold for now pending biopsy tomorrow. After biopsy, would recommend anticoagulation with heparin while inpatient/DOAC upon discharge from hospital History of Present Illness Reason for Consultation: CLL History of Present Illness 83-year-old female with history of CLL currently on Zanubrutinib who presented to the ER today with worsening abdominal pain. CT abdomen and pelvis obtained in the ER revealed acute splenic infarct with chronic splenic vein occlusion, unchanged disease in the lower chest and abdomen, small left pleural effusion and healing subacute nondisplaced pathologic fracture of the lateral left 10th rib. Allergies Allergy/AdvReac Type Severity Reaction Status Date / Time amitriptyline [From Elavil] AdvReac Unknown CAN'T Verified 06/06/24 09:07 REMEMBER nortriptyline [From Pamelor] AdvReac Unknown CAN'T Verified 06/06/24 09:07 REMEMBER Home Medications Medication Instructions Recorded Confirmed Type aspirin 81 mg capsule 81 mg PO HS 06/02/24 09/11/24 History ibandronate 150 mg tablet 150 mg PO UD 06/19/24 09/11/24 History albuterol sulfate 90 mcg/actuation 2 puff inhalation Q6H PRN 06/23/24 09/11/24 Rx aerosol inhaler shortness of breath or wheezing #8.5 grams mirtazapine 15 mg tablet 15 mg PO HS 07/30/24 09/11/24 History zanubrutinib 80 mg capsule 160 mg PO BID 07/30/24 09/11/24 History (Brukinsa) levothyroxine 75 mcg tablet 75 mcg PO DAILY #30 tabs 08/26/24 09/11/24 Rx allopurinol 300 mg tablet 300 mg PO DAILY 09/11/24 09/11/24 History donepezil 10 mg tablet 10 mg PO HS 09/11/24 09/11/24 History megestrol 40 mg tablet 40 mg PO BID 09/11/24 09/11/24 History omeprazole 40 mg capsule,delayed 40 mg PO HS 09/11/24 09/11/24 History release oxycodone 5 mg tablet 5 mg PO .EVERY 4-6 HRS PRN Pain 09/11/24 09/11/24 History Patient History Medical History (Updated 09/11/24 @ 18:40 by Dewayne Ann MD) Hx of compression fracture of spine (~05/19/23) lumbar compression fracture-L1 History of colon polyps Lumbar compression fracture ~04/2023 Poor historian Surgical History Hx of colonoscopy H/O kyphoplasty (05/2023) L1, L4 H/O cataract extraction S/P nasal surgery excision of cyst R side of nose S/P ORIF (open reduction internal fixation) fracture R wrist S/P hysterectomy S/P cholecystectomy Family History Father Prostate cancer Mother Lung disease Denies family history of Ovarian cancer Myocardial infarction Breast cancer Colorectal cancer Social History Smoking Status: Never smoker Second Hand Exposure: No; Do You Dip or Chew Tobacco: No; Hx Alcohol Use: No Hx Substance Use: No Preferred Language: Romansh Communication Ability: Effective Communication Ability Comment: mild cognitive impairment Visual Impairment: No Limitations Hearing Ability: Hard of Hearing Public Relations Professional Required: No Beliefs That Will Affect Care: None marital status: Current Living Situation: Spouse current occupational status: retired Feels Safe at Home: Yes Childhood Exposure to Second-Hand Smoke: No Diet: regular Diet Comment: Regular caffeine: Yes during the past year weight has: remained stable Dental Care, Regularly: Yes Physical Activity Frequency: 5-6 Times per Week Seatbelt Use: always Sunscreen Use: No Assistive Devices: Glasses Results & Data Vital Signs (Past 12 Hours) Vital Signs Temp Pulse Pulse Resp BP BP Pulse Ox 09/11/24 19:17 85 16 111/66 97 09/11/24 17:41 83 18 106/50 L 97 09/11/24 16:20 83 16 126/68 98 09/11/24 15:07 75 16 139/85 99 09/11/24 13:38 36.5 C 86 20 125/70 98 O2 Del Method 09/11/24 19:17 Room Air 09/11/24 17:41 Room Air 09/11/24 16:20 Room Air 09/11/24 15:07 Room Air 09/11/24 13:38 Room Air
[2024-09-11] MEDS ORDERED: ALBUTEROL HFA 8 GM INHALER INH PRN (20:26)
[2024-09-11] MEDS ORDERED: NON-FORMULARY MEDICATION (Ibandronate 150 mg tablet) PO SCH (20:26)
[2024-09-11] MEDS: HEPARIN SOD 5,000 UNIT/0.5 ML VIAL SQ SCH (21:35)
[2024-09-11] MEDS: ASPIRIN 81 MG ECTAB PO SCH (21:37)
[2024-09-11] MEDS: MIRTAZAPINE TAB 15 MG TAB PO SCH (21:37)
[2024-09-11] MEDS: DONEPEZIL HCL 10 MG TAB PO SCH (21:37)
[2024-09-11] MEDS: PANTOprazole 40 MG TAB PO SCH (21:37)
[2024-09-11] MEDS: oxyCODONE HCL IR 5 MG TAB (IMMEDIATE RELEASE) PO PRN (21:46)
[2024-09-11] MEDS: MEGESTROL ACETATE 40 MG TAB PO SCH (21:53)
[2024-09-12] MEDS: LEVOTHYROXINE SODIUM 75 MCG TABLET PO SCH (04:18)
[2024-09-12 06:39] LABS: Hematocrit (blood only) 35.7 % (37.0-47.0); Hemoglobin 11.9 g/dl (12.0-16.0); Mean Corpuscular Hemoglobin 30.8 pg (25.0-34.0); Mean Corpuscular Hgb Conc 33.3 g/dL (32.0-36.0); Mean Corpuscular Volume 92.5 fL (80.0-100.0); Mean Platelet Volume 12.2 fL (9.4-12.4); Platelet Count 326 K/uL (130-400); RDW Coefficient of Variation 14.1 % (11.5-14.5); RDW Standard Deviation 47.1 fL (36.4-46.3); Red Blood Count 3.86 M/uL (4.20-5.40); White Blood Count 71.16 K/ul (4.8-10.8)
[2024-09-12 06:56] LABS: BUN Creatinine Ratio 35.2 (10-20); Calcium 9.2 mg/dl (8.6-10.3); Creatinine Clr Calc Pharmacy 48.8 ml/min; Potassium 3.8 mmol/L (3.5-5.1)
[2024-09-12] MEDS: allopurinoL 300 MG TAB PO SCH (08:03)
[2024-09-12] MEDS: cefTRIAXone SODIUM 1,000 MG/50 ML BAG IV SCH (08:22)
[2024-09-12 08:44] LABS: Partial Thromboplastin Ratio 1.1; Partial Thromboplastin Time 29 Seconds (21-31)
--- NOTE | 2024-09-12 10:54 | Hospitalist Progress Note ---
Date of Service September 12, 2024 Assessment & Plan (1) Splenic infarct: Plan: -CT showing Acute splenic infarct, new from 09/05/2024 with chronic splenic vein occlusion. -plan on starting anticoagulation after biopsies completed -pain control with oxycodone (2) CLL (chronic lymphocytic leukemia): Plan: -Heme-onc Dr. Dietz consult appreciated -biopsy of soft tissue rib lesion and bone marrow biopsy pending -on zanubrutinib (3) Asthma: Plan: -albuterol prn (4) Hypothyroidism: Plan: -levothyroxine Plan Admit to Med-surg tele DVT px with heparin SQ PT/OT evaluation Admission and Anticipated Discharge Date Admission Date: September 11, 2024 Subjective Pt states she has very little appetite, still feel abdominal pain. Review of Systems Review of Systems: CONST: Negative for fever, body aches and chills. HENT: Negative for neck pain/stiffness, headache, congestion, sore throat, swelling. EYES: Negative for discharge/pain or vision changes. RESP: Negative for cough/hemoptysis and shortness of breath. CV: Negative chest pain, difficulty breathing, palpitations. ABD: Negative pain, nausea, vomiting. : Negative increase frequency, dysuria, blood in urine or stool. MUSC: Negative for muscle aches, edema. SKIN: Negative rash, lesions/sores. NEURO: Negative headache, dizziness, weakness. Physical Exam Physical Exam: GENERAL APPEARANCE NAD, activity normal for age, well developed/ well nourished, no cyanosis, pallor, or diaphoresis. EYES lids/conjunctiva normal. EARS/NOSE/THROAT Mucous membranes moist, nares normal, lips/teeth normal uvula midline without oral pharyngeal erythema, exudate or swelling TMs normal bilaterally. No lymphangitis/lymphedema. HEAD/NECK normocephalic atraumatic, no facial trauma, neck is supple. RESPIRATORY respiratory effort normal, speaks in full sentences, no tripod position, no accessory muscle use. Lungs clear to auscultation without rhonchi, wheezes, rales CARDIAC Regular rate and rhythm, no edema. ABDOMINAL Soft, ND/NT. No evidence of fluid wave. No pulsatile masses on exam, rebound tenderness, Muro sign or pain over Mcburney's point. MUSCLES/EXTREMITIES No abnormal range of motion, no swelling. SKIN Warm, pink and dry. No rashes, dermatoses, petechiae or lesions. NEUROLOGICAL Speech is clear and appropriate. Normal level of consciousness. Gait and coordination are normal. 5/5 strength in all extremities. PSYCH Normal mood and affect. Judgement/competence is appropriate Results & Data Results & Data Vital Signs (Past 12 Hours) Vital Signs Temp Pulse Pulse Resp BP Pulse Ox O2 Del Method 09/12/24 09:35 84 09/12/24 07:36 36.7 C 83 16 127/67 95 Room Air 09/12/24 03:27 36.9 C 81 16 134/69 95 Room Air 09/11/24 23:55 80 09/11/24 23:06 36.7 C 84 18 111/77 95 Room Air 09/11/24 23:00 36.7 C 82 18 120/67 95 Room Air PG Care Time/CCT Total # of Minutes Spent Total Time Spent with Patient: Total time spent is greater than 50% in coordination of care (as documented) at patient's floor/unit and/or counseling patient: Coding Level of Care Code 36901 SUB INP/OBS CARE 2/35MIN Diagnoses Splenic infarct D73.5 CLL (chronic lymphocytic leukemia) C91.10 Asthma J45.909 Hypothyroidism E03.9
--- NOTE | 2024-09-12 15:28 | Ultrasound Report ---
ULTRASOUND-GUIDED LEFT POSTERIOR RIB SOFT TISSUE LESION CORE BIOPSY CLINICAL HISTORY: 4.2 cm left posterior soft tissue rib lesion; history of CLL PROCEDURE: Procedure and risks were explained. Informed consent was obtained. A final timeout was com pleted. The left posterior thorax was prepped and draped in sterile fashion. 1% lidocaine was utilize d for skin anesthesia. Utilizing ultrasound guidance, an 18-gauge core biopsy needle was advanced into the left posterior ri bs soft tissue lesion. Ultrasound images were obtained. 3 cores were obtained and given to the pathol ogist for review. The needle was removed and Band-Aid applied. The patient tolerated the procedure we ll. Vital signs will be monitored postprocedure. IMPRESSION: Ultrasound-guided left posterior ribs soft tissue lesion core biopsy as above. Performed, dictated, and signed by Jason Blanco PA-C; to be co-signed by Dr. Donny Morales. Electronically signed by: Donny Morales M.D. 09/12/2024 3:02 PM
[2024-09-13 07:30] LABS: Hematocrit (blood only) 36.8 % (37.0-47.0); Mean Corpuscular Hemoglobin 30.2 pg (25.0-34.0); Mean Corpuscular Hgb Conc 32.6 g/dL (32.0-36.0); Mean Corpuscular Volume 92.5 fL (80.0-100.0); Mean Platelet Volume 12.2 fL (9.4-12.4); Platelet Count 322 K/uL (130-400); RDW Coefficient of Variation 13.8 % (11.5-14.5); RDW Standard Deviation 46.6 fL (36.4-46.3); Red Blood Count 3.98 M/uL (4.20-5.40); White Blood Count 66.14 K/ul (4.8-10.8)
[2024-09-13 07:53] LABS: BUN Creatinine Ratio 29.3 (10-20); Calcium 9.5 mg/dl (8.6-10.3); Creatinine Clr Calc Pharmacy 46.2 ml/min; Potassium 3.7 mmol/L (3.5-5.1)
--- NOTE | 2024-09-13 09:52 | Hospitalist Progress Note ---
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 -plan on starting anticoagulation after biopsies completed -pain control with oxycodone (2) CLL (chronic lymphocytic leukemia): Plan: -Heme-onc Dr. Dietz consult appreciated -Pt had rib soft tissue biopsy 09/12, awaiting path. -Bone marrow biopsy pending. -on zanubrutinib (3) Asthma: Plan: -albuterol prn (4) Hypothyroidism: Plan: -levothyroxine Plan Admit to Med-surg tele DVT px with heparin SQ PT/OT evaluation Admission and Anticipated Discharge Date Admission Date: September 11, 2024 Subjective Pt has been eating more, enjoying breakfast this morning. No events overnight, resting comfortably in bed. Review of Systems Review of Systems: CONST: Negative for fever, body aches and chills. HENT: Negative for neck pain/stiffness, headache, congestion, sore throat, swelling. EYES: Negative for discharge/pain or vision changes. RESP: Negative for cough/hemoptysis and shortness of breath. CV: Negative chest pain, difficulty breathing, palpitations. ABD: Negative pain, nausea, vomiting. : Negative increase frequency, dysuria, blood in urine or stool. MUSC: Negative for muscle aches, edema. SKIN: Negative rash, lesions/sores. NEURO: Negative headache, dizziness, weakness. Physical Exam Physical Exam: GENERAL APPEARANCE NAD, activity normal for age, well developed/ well nourished, no cyanosis, pallor, or diaphoresis. EYES lids/conjunctiva normal. EARS/NOSE/THROAT Mucous membranes moist, nares normal, lips/teeth normal uvula midline without oral pharyngeal erythema, exudate or swelling TMs normal bilaterally. No lymphangitis/lymphedema. HEAD/NECK normocephalic atraumatic, no facial trauma, neck is supple. RESPIRATORY respiratory effort normal, speaks in full sentences, no tripod position, no accessory muscle use. Lungs clear to auscultation without rhonchi, wheezes, rales CARDIAC Regular rate and rhythm, no edema. ABDOMINAL Soft, ND/NT. No evidence of fluid wave. No pulsatile masses on exam, rebound tenderness, Muro sign or pain over Mcburney's point. MUSCLES/EXTREMITIES No abnormal range of motion, no swelling. SKIN Warm, pink and dry. No rashes, dermatoses, petechiae or lesions. NEUROLOGICAL Speech is clear and appropriate. Normal level of consciousness. Gait and coordination are normal. 5/5 strength in all extremities. PSYCH Normal mood and affect. Judgement/competence is appropriate Results & Data Results & Data Vital Signs (Past 12 Hours) Vital Signs Temp Pulse Pulse Resp BP Pulse Ox O2 Del Method 09/13/24 07:50 Room Air 09/13/24 07:25 36.5 C 87 18 110/69 95 Room Air 09/13/24 03:48 36.7 C 85 18 117/66 95 Room Air 09/12/24 23:10 37 C 79 18 138/68 96 Room Air 09/12/24 22:34 101 H PG Care Time/CCT Total # of Minutes Spent Total Time Spent with Patient: Total time spent is greater than 50% in coordination of care (as documented) at patient's floor/unit and/or counseling patient: Coding Level of Care Code 48365 SUB INP/OBS CARE 2/35MIN Diagnoses Splenic infarct D73.5 CLL (chronic lymphocytic leukemia) C91.10 Asthma J45.909 Hypothyroidism E03.9
[2024-09-13] MEDS: ZANUBRUTINIB 80 MG CAP PO SCH (10:08)
[2024-09-13] MEDS: SODIUM CHLORIDE 0.9% 500 ML IV SCH (12:34)
[2024-09-13] MEDS: MAGNESIUM HYDROXIDE SUSP 30 ML UDC PO PRN (16:53)
[2024-09-13] MEDS: DOCUSATE SODIUM 100 MG CAP PO SCH (21:23)
[2024-09-14 07:24] LABS: Hematocrit (blood only) 32.6 % (37.0-47.0); Hemoglobin 10.4 g/dl (12.0-16.0); Mean Corpuscular Hemoglobin 30.3 pg (25.0-34.0); Mean Corpuscular Hgb Conc 31.9 g/dL (32.0-36.0); Mean Platelet Volume 12.3 fL (9.4-12.4); Platelet Count 272 K/uL (130-400); RDW Coefficient of Variation 13.7 % (11.5-14.5); RDW Standard Deviation 47.5 fL (36.4-46.3); Red Blood Count 3.43 M/uL (4.20-5.40); White Blood Count 57.31 K/ul (4.8-10.8)
[2024-09-14 07:26] LABS: BUN Creatinine Ratio 32.9 (10-20); Calcium 9.2 mg/dl (8.6-10.3); Creatinine Clr Calc Pharmacy 43.9 ml/min; Potassium 3.7 mmol/L (3.5-5.1)
--- NOTE | 2024-09-14 10:36 | Hospitalist Progress Note ---
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 -plan on starting anticoagulation after biopsies completed -pain control with oxycodone -Bone marrow biopsy still pending (2) CLL (chronic lymphocytic leukemia): Plan: -Heme-onc Dr. Dietz consult appreciated -Pt had rib soft tissue biopsy 09/12, awaiting path. -Bone marrow biopsy pending. -on zanubrutinib (3) Asthma: Plan: -albuterol prn (4) Hypothyroidism: Plan: -levothyroxine Plan Pt is an 83 y/o female with pmh of CLL, asthma, HLD, hypothyroidism, IBS, who presents with increasing fatigue, generalized weakness and abdominal pain. Pt has been followed by Dr. Dietz for treatment of her CLL. 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 Dr. Dietz recommended biopsy of both rib lesion (done 09/12) and bone marrow (still pending), then starting anticoagulation for splenic infarct. Once completed PT recommended d/c to rehab. Admission and Anticipated Discharge Date Admission Date: September 11, 2024 Subjective No events overnight. Pt still complaining of not being able to eat much. She does state she has been drinking her Boost shakes. Review of Systems Review of Systems: CONST: Negative for fever, body aches and chills. HENT: Negative for neck pain/stiffness, headache, congestion, sore throat, swelling. EYES: Negative for discharge/pain or vision changes. RESP: Negative for cough/hemoptysis and shortness of breath. CV: Negative chest pain, difficulty breathing, palpitations. ABD: Negative pain, nausea, vomiting. : Negative increase frequency, dysuria, blood in urine or stool. MUSC: Negative for muscle aches, edema. SKIN: Negative rash, lesions/sores. NEURO: Negative headache, dizziness, weakness. Physical Exam Physical Exam: GENERAL APPEARANCE NAD, activity normal for age, well developed/ well nourished, no cyanosis, pallor, or diaphoresis. EYES lids/conjunctiva normal. EARS/NOSE/THROAT Mucous membranes moist, nares normal, lips/teeth normal uvula midline without oral pharyngeal erythema, exudate or swelling TMs normal bilaterally. No lymphangitis/lymphedema. HEAD/NECK normocephalic atraumatic, no facial trauma, neck is supple. RESPIRATORY respiratory effort normal, speaks in full sentences, no tripod position, no accessory muscle use. Lungs clear to auscultation without rhonchi, wheezes, rales CARDIAC Regular rate and rhythm, no edema. ABDOMINAL Soft, ND/NT. No evidence of fluid wave. No pulsatile masses on exam, rebound tenderness, Muro sign or pain over Mcburney's point. MUSCLES/EXTREMITIES No abnormal range of motion, no swelling. SKIN Warm, pink and dry. No rashes, dermatoses, petechiae or lesions. NEUROLOGICAL Speech is clear and appropriate. Normal level of consciousness. Gait and coordination are normal. 5/5 strength in all extremities. PSYCH Normal mood and affect. Judgement/competence is appropriate Results & Data Results & Data Vital Signs (Past 12 Hours) Vital Signs Temp Pulse Pulse Resp BP Pulse Ox O2 Del Method 09/14/24 08:07 36.3 C L 79 18 113/65 96 Room Air 09/14/24 07:32 Room Air 09/14/24 02:37 36.1 C L 78 16 99/63 L 96 Room Air 09/14/24 00:38 Room Air 09/14/24 00:38 91 H 09/13/24 23:15 36.7 C 90 16 100/62 95 Room Air PG Care Time/CCT Total # of Minutes Spent Total Time Spent with Patient: Total time spent is greater than 50% in coordination of care (as documented) at patient's floor/unit and/or counseling patient: Coding Level of Care Code 19173 SUB INP/OBS CARE 2/35MIN Diagnoses Splenic infarct D73.5 CLL (chronic lymphocytic leukemia) C91.10 Asthma J45.909 Hypothyroidism E03.9
[2024-09-14] MEDS: ACETAMINOPHEN 325 MG TAB PO PRN (13:21)
--- NOTE | 2024-09-14 17:36 | CT Scan Report ---
EXAM: CT Chest Without Intravenous Contrast INDICATION: Evaluate for hematoma. TECHNIQUE: Axial computed tomography images of the chest without intravenous contrast. Sagittal and coronal reformatted images were created and reviewed. This CT exam was performed using one or more of the following dose reduction techniques: automated exposure control, adjustment of the mA and/or kV according to patient size, and/or use of iterative reconstruction technique. COMPARISON: 09/05/2024 FINDINGS: Limitations: None. Lungs and pleural spaces: Stable partially loculated left basilar pleural effusion measuring maximal thickness of 1.3 cm. No pneumothorax. Heart: No abnormality noted. Thyroid: No abnormality noted. Bones/joints: There is increased lytic destruction and mass mass eroding the left posterior lateral ninth rib measuring 3.1 x 3.4 x 2.8 cm. Stable irregular soft tissue mass is noted in the left intercostal spaces inferior to T9. Soft tissues: No significant abnormality noted. Vasculature: Atherosclerotic calcification of the aorta and branches. No aneurysm. Lymph nodes: Stable gastrohepatic ligament adenopathy measuring up to 2.8 cm. Spleen: Grossly stable incompletely imaged splenic mass. Partially imaged splenic and silvia hepatis mass is grossly unchanged although not completely assessed. Other findings: No gross change superior aspect of a mass in the silvia hepatis. IMPRESSION: 1. Increasing metastatic destruction of the left ninth rib. Multiple left intercostal malignant masses inferior to this are unchanged. 2. No visible hematoma. 3. Stable small loculated left basilar pleural effusion. ACT 112: Negative or not required by law. Electronically signed by Polly Feldman 09-14-2024 5:36 PM
[2024-09-15 09:03] LABS: Hematocrit (blood only) 35.9 % (37.0-47.0); Hemoglobin 11.6 g/dl (12.0-16.0); Mean Corpuscular Hemoglobin 30.5 pg (25.0-34.0); Mean Corpuscular Hgb Conc 32.3 g/dL (32.0-36.0); Mean Corpuscular Volume 94.5 fL (80.0-100.0); Mean Platelet Volume 11.6 fL (9.4-12.4); Platelet Count 320 K/uL (130-400); RDW Coefficient of Variation 13.9 % (11.5-14.5); RDW Standard Deviation 47.9 fL (36.4-46.3); White Blood Count 59.25 K/ul (4.8-10.8)
[2024-09-15 09:11] LABS: BUN Creatinine Ratio 29.6 (10-20); Calcium 9.3 mg/dl (8.6-10.3); Creatinine Clr Calc Pharmacy 46.2 ml/min
[2024-09-15] MEDS: fentaNYL citrate PF 100 MCG/2 ML VIAL ONE (11:37)
[2024-09-15] MEDS: ACETAMINOPHEN 1000 MG/100 ML IV IV ONE (11:38)
[2024-09-15] MEDS ORDERED: Heparin IV Adult Wt-Based Standard w/ INITIAL Bolus Protocol IV SCH (12:00)
[2024-09-15] MEDS: HEPARIN SOD (PORCINE) 1000 UNIT/ML IV STA (12:35)
[2024-09-15] MEDS: HEPARIN 25000 UNIT/500 ML 25,000 UNITS/500 ML BAG IV SCH (12:35)
[2024-09-15 12:49] LABS: Basophils # (auto) 0.11 K/uL (0.00-0.20); Basophils % (auto) 0.2 %; Bone Marrow Smear SLHOLD; Eosinophils # (auto) 0.14 K/uL (0.00-0.50); Eosinophils % (auto) 0.2 %; Immature Granulocytes # (auto) 0.14 K/uL (0.01-0.20); Immature Granulocytes % (auto) 0.2 %; Lymphocytes # (auto) 48.56 K/uL (1.20-3.40); Lymphocytes % (auto) 81.2 %; Monocytes # (auto) 1.28 K/uL (0.11-0.59); Monocytes % (auto) 2.1 %; Neutrophils # (auto) 9.55 K/uL (1.40-6.50); Neutrophils % (auto) 16.1 %; Smudge Cells Present
[2024-09-15 13:05] LABS: Hematocrit (blood only) 34.9 % (37.0-47.0); Hemoglobin 11.2 g/dl (12.0-16.0); Mean Corpuscular Hemoglobin 29.9 pg (25.0-34.0); Mean Corpuscular Hgb Conc 32.1 g/dL (32.0-36.0); Mean Corpuscular Volume 93.1 fL (80.0-100.0); Mean Platelet Volume 11.7 fL (9.4-12.4); Platelet Count 340 K/uL (130-400); RDW Coefficient of Variation 13.8 % (11.5-14.5); RDW Standard Deviation 46.9 fL (36.4-46.3); Red Blood Count 3.75 M/uL (4.20-5.40)
[2024-09-15 13:09] LABS: White Blood Count 63.93 K/ul (4.8-10.8)
[2024-09-15 13:20] LABS: Partial Thromboplastin Time 28 Seconds (21-31); Prothrombin Time 11.1 Seconds (9.0-12.0)
[2024-09-15 13:32] LABS: Basophils # (auto) 0.07 K/uL (0.00-0.20); Basophils % (auto) 0.1 %; Eosinophils # (auto) 0.14 K/uL (0.00-0.50); Eosinophils % (auto) 0.2 %; Immature Granulocytes # (auto) 0.17 K/uL (0.01-0.20); Immature Granulocytes % (auto) 0.3 %; Lymphocytes # (auto) 52.73 K/uL (1.20-3.40); Lymphocytes % (auto) 82.5 %; Monocytes % (auto) 2.2 %; Neutrophils # (auto) 9.42 K/uL (1.40-6.50); Neutrophils % (auto) 14.7 %; Smudge Cells Present
--- NOTE | 2024-09-15 13:56 | CT Scan Report ---
CT-guided bone marrow biopsy INDICATION: Lymphoma PROCEDURE: Procedure and risks were explained. Informed consent was obtained. A final timeout was com pleted. The patient was placed prone on the CT exam table. The left gluteal region was prepped and dr aped in sterile fashion. 1% lidocaine was utilized for skin anesthesia. Utilizing CT guidance, an 11-gauge bone biopsy needle was advanced into the left iliac bone. Multiple aspirates and one bone core was obtained and given to the lab. The needle was removed and Band-Aid a pplied. The patient tolerated the procedure well. Vital signs will be monitored on the floor. IMPRESSION: Bone marrow biopsy as above. Performed, dictated, and signed by Jason Blanco PA-C; to be co-signed by Dr. Dick Velasquez. Electronically signed by: Dick Velasquez M.D. 09/15/2024 4:06 PM
[2024-09-15] MEDS: CETIRIZINE HCL 10 MG TABLET PO ONE (18:07)
[2024-09-15 19:48] LABS: ANTI-Xa, UFH(UnfractionatedHep 0.41 IU/ml (0.3-0.7)
--- NOTE | 2024-09-15 21:29 | Hospitalist Progress Note ---
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 -plan on starting anticoagulation after biopsies completed -pain control with oxycodone -Bone marrow biopsy completed no need for corticosteroids as pain resolved. (2) CLL (chronic lymphocytic leukemia): Plan: -Heme-onc Dr. Dietz consult appreciated -Pt had rib soft tissue biopsy 09/12, awaiting path. -Bone marrow biopsy completed on 09/15 -on zanubrutinib (3) Asthma: Plan: -albuterol prn (4) Hypothyroidism: Plan: -levothyroxine Plan Pt is an 83 y/o female with pmh of CLL, asthma, HLD, hypothyroidism, IBS, who presents with increasing fatigue, generalized weakness and abdominal pain. Pt has been followed by Dr. Dietz for treatment of her CLL. 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 Dr. Dietz recommended biopsy of both rib lesion (done 09/12) and bone marrow (still pending), then starting anticoagulation for splenic infarct. Once completed PT recommended d/c to rehab. Admission and Anticipated Discharge Date Admission Date: September 11, 2024 Subjective Patient reports she no longer is having abdominal pain. Physical Exam Physical Exam: GENERAL: NAD EYES lids/conjunctiva normal. HEAD/NECK normocephalic atraumatic, no facial trauma, neck is supple. RESPIRATORY respiratory effort normal, speaks in full sentences, no tripod position, no accessory muscle use. Lungs clear to auscultation without rhonchi, wheezes, rales CARDIAC Regular rate and rhythm, no edema. ABDOMINAL Soft, ND/NT. No evidence of fluid wave. No pulsatile masses on exam, rebound tenderness, Muro sign or pain over Mcburney's point. Results & Data Results & Data Vital Signs (Past 12 Hours) Vital Signs Temp Pulse Pulse Resp BP BP Pulse Ox 09/15/24 20:59 09/15/24 20:03 37.7 C H 120 H 18 111/70 95 09/15/24 16:07 36.6 C 80 20 114/61 96 09/15/24 15:28 85 09/15/24 15:17 36.7 C 79 16 113/76 93 09/15/24 14:39 36.6 C 77 16 100/57 L 97 09/15/24 14:00 36.5 C 78 20 91/54 L 97 09/15/24 11:47 36.3 C L 89 16 105/64 97 O2 Del Method 09/15/24 20:59 Room Air 09/15/24 20:03 Room Air 09/15/24 16:07 Room Air 09/15/24 15:28 09/15/24 15:17 Room Air 09/15/24 14:39 Room Air 09/15/24 14:00 Room Air 09/15/24 11:47 Room Air PG Care Time/CCT Total # of Minutes Spent Total Time Spent with Patient: Total time spent is greater than 50% in coordination of care (as documented) at patient's floor/unit and/or counseling patient: Coding Level of Care Code 06740 SUB INP/OBS CARE 2/35MIN Diagnoses Splenic infarct D73.5 CLL (chronic lymphocytic leukemia) C91.10 Asthma J45.909 Hypothyroidism E03.9
[2024-09-16 08:09] LABS: Hematocrit (blood only) 33.5 % (37.0-47.0); Hemoglobin 10.8 g/dl (12.0-16.0); Mean Corpuscular Hemoglobin 30.7 pg (25.0-34.0); Mean Corpuscular Hgb Conc 32.2 g/dL (32.0-36.0); Mean Corpuscular Volume 95.2 fL (80.0-100.0); Mean Platelet Volume 12.6 fL (9.4-12.4); Platelet Count 297 K/uL (130-400); RDW Coefficient of Variation 13.9 % (11.5-14.5); Red Blood Count 3.52 M/uL (4.20-5.40); White Blood Count 54.36 K/ul (4.8-10.8)
[2024-09-16 08:29] LABS: ANTI-Xa, UFH(UnfractionatedHep 0.26 IU/ml (0.3-0.7)
[2024-09-16 08:33] LABS: BUN Creatinine Ratio 28.9 (10-20); C Reactive Protein 16.92 mg/dl (0-0.5); Calcium 9.2 mg/dl (8.6-10.3); Creatinine Clr Calc Pharmacy 45.1 ml/min; Potassium 3.5 mmol/L (3.5-5.1)
[2024-09-16 11:55] LABS: Basophils # (auto) 0.08 K/uL (0.00-0.20); Basophils % (auto) 0.1 %; Eosinophils # (auto) 0.18 K/uL (0.00-0.50); Eosinophils % (auto) 0.3 %; Immature Granulocytes # (auto) 0.14 K/uL (0.01-0.20); Immature Granulocytes % (auto) 0.3 %; Lymphocytes # (auto) 46.17 K/uL (1.20-3.40); Monocytes # (auto) 1.09 K/uL (0.11-0.59); Neutrophils # (auto) 7.31 K/uL (1.40-6.50); Neutrophils % (auto) 13.3 %; Smudge Cells Present
[2024-09-16 15:32] LABS: ANTI-Xa, UFH(UnfractionatedHep 0.25 IU/ml (0.3-0.7)
--- NOTE | 2024-09-16 18:15 | Hematology/Oncology Prog Note ---
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 -Discussed pathology results with patient and her daughters. Suspect diffuse large B-cell lymphoma likely transformation from CLL. Although it is not clear if she has double hit lymphoma since FISH testing is pending, recommend starting chemotherapy while inpatient due to aggressiveness of disease. -Given patient's age, frailty and other comorbidities plan to start her on mini CHOP while inpatient as long as 2D echocardiogram does not show any evidence of reduced EF. If 2D echo shows reduced EF, we will plan to treat with COEP. Rituximab will be added to treatment regimen once outpatient. -She will need Mediport for chemotherapy but can place PICC line in order to proceed with cycle 1 of treatment Inpatient after which Mediport can be placed. Admission and Anticipated Discharge Date Admission Date: September 11, 2024 Subjective She feels a little bit better. Still endorses occasional left flank pain. Fatigue has improved.Pathology from core biopsy of rib soft tissue mass obtained on 09/12/2024 revealed diffuse large B-cell lymphoma with FISH pending Results & Data Vital Signs (Past 12 Hours) Vital Signs Temp Pulse Pulse Resp BP BP Pulse Ox 09/16/24 15:35 36.7 C 18 110/66 96 09/16/24 14:05 82 09/16/24 10:53 36.5 C 80 20 118/70 98 09/16/24 10:36 09/16/24 07:13 36.6 C 79 20 101/55 L 99 O2 Del Method 09/16/24 15:35 Room Air 09/16/24 14:05 09/16/24 10:53 Room Air 09/16/24 10:36 Room Air 09/16/24 07:13 Room Air
[2024-09-16 22:25] LABS: ANTI-Xa, UFH(UnfractionatedHep 0.29 IU/ml (0.3-0.7)
[2024-09-16] MEDS: MELATONIN 3 MG TAB PO PRN (22:30)
--- NOTE | 2024-09-16 22:53 | Hospitalist Progress Note ---
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 -plan on starting anticoagulation after biopsies completed Now on heparin. -pain control with oxycodone -Bone marrow biopsy completed no need for corticosteroids as pain resolved. (2) CLL (chronic lymphocytic leukemia): Plan: -Heme-onc Dr. Dietz consult appreciated -Pt had rib soft tissue biopsy 09/12, awaiting path. -Bone marrow biopsy completed on 09/15 -on zanubrutinib will start chemotherapy tomorrow as per oncology based on pathology. (3) Asthma: Plan: -albuterol prn (4) Hypothyroidism: Plan: -levothyroxine Plan Pt is an 83 y/o female with pmh of CLL, asthma, HLD, hypothyroidism, IBS, who presents with increasing fatigue, generalized weakness and abdominal pain. Pt has been followed by Dr. Dietz for treatment of her CLL. 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 Dr. Dietz recommended biopsy of both rib lesion (done 09/12) and bone marrow (still pending), then starting anticoagulation for splenic infarct. Once completed PT recommended d/c to rehab. Admission and Anticipated Discharge Date Admission Date: September 11, 2024 Subjective Patient reports no new symptoms. Physical Exam Physical Exam: GENERAL: NAD EYES lids/conjunctiva normal. HEAD/NECK normocephalic atraumatic, no facial trauma, neck is supple. RESPIRATORY respiratory effort normal, speaks in full sentences, no tripod position, no accessory muscle use. Lungs clear to auscultation without rhonchi, wheezes, rales CARDIAC Regular rate and rhythm, no edema. ABDOMINAL Soft, ND/NT. No evidence of fluid wave. No pulsatile masses on exam, rebound tenderness, Muro sign or pain over Mcburney's point. Results & Data Results & Data Vital Signs (Past 12 Hours) Vital Signs Temp Pulse Pulse Resp BP BP Pulse Ox 09/16/24 22:46 91 H 09/16/24 19:30 36.6 C 84 16 123/64 98 09/16/24 15:35 36.7 C 18 110/66 96 09/16/24 14:05 82 09/16/24 10:53 36.5 C 80 20 118/70 98 O2 Del Method 09/16/24 22:46 09/16/24 19:30 Room Air 09/16/24 15:35 Room Air 09/16/24 14:05 09/16/24 10:53 Room Air PG Care Time/CCT Total # of Minutes Spent Total Time Spent with Patient: Total time spent is greater than 50% in coordination of care (as documented) at patient's floor/unit and/or counseling patient: Coding Level of Care Code 71816 SUB INP/OBS CARE 2/35MIN Diagnoses Splenic infarct D73.5 CLL (chronic lymphocytic leukemia) C91.10 Asthma J45.909 Hypothyroidism E03.9
[2024-09-17 05:05] LABS: Hematocrit (blood only) 31.2 % (37.0-47.0); Hemoglobin 10.5 g/dl (12.0-16.0); Mean Corpuscular Hemoglobin 31.3 pg (25.0-34.0); Mean Corpuscular Hgb Conc 33.7 g/dL (32.0-36.0); Mean Corpuscular Volume 92.9 fL (80.0-100.0); Mean Platelet Volume 11.3 fL (9.4-12.4); Platelet Count 298 K/uL (130-400); RDW Coefficient of Variation 13.7 % (11.5-14.5); RDW Standard Deviation 46.5 fL (36.4-46.3); Red Blood Count 3.36 M/uL (4.20-5.40); White Blood Count 53.42 K/ul (4.8-10.8)
[2024-09-17 05:12] LABS: BUN Creatinine Ratio 27.6 (10-20); Calcium 8.9 mg/dl (8.6-10.3); Creatinine Clr Calc Pharmacy 49.3 ml/min
[2024-09-17 05:23] LABS: Basophils # (auto) 0.07 K/uL (0.00-0.20); Basophils % (auto) 0.1 %; Eosinophils # (auto) 0.16 K/uL (0.00-0.50); Eosinophils % (auto) 0.3 %; Immature Granulocytes # (auto) 0.14 K/uL (0.01-0.20); Immature Granulocytes % (auto) 0.3 %; Lymphocytes # (auto) 43.83 K/uL (1.20-3.40); Monocytes # (auto) 1.25 K/uL (0.11-0.59); Monocytes % (auto) 2.3 %; Neutrophils # (auto) 7.97 K/uL (1.40-6.50); Polychromasia 1+
--- NOTE | 2024-09-17 12:44 | XCELERA ---
[id number] \\[id number]
--- NOTE | 2024-09-17 22:34 | Hospitalist Progress Note ---
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 -plan on starting anticoagulation after biopsies completed Now on heparin. -pain control with oxycodone -Bone marrow biopsy completed no need for corticosteroids as pain resolved. Diffuse large B cell lymphoma is now seen on pathology report will start aggressive chemotherapy on 09/18 PICC line obrtained but private room was obtained (2) CLL (chronic lymphocytic leukemia): Plan: -Heme-onc Dr. Dietz consult appreciated -Pt had rib soft tissue biopsy 09/12, awaiting path. -Bone marrow biopsy completed on 09/15 -on zanubrutinib will start chemotherapy tomorrow as per oncology based on pathology. (3) Asthma: Plan: -albuterol prn (4) Hypothyroidism: Plan: -levothyroxine Plan Pt is an 83 y/o female with pmh of CLL, asthma, HLD, hypothyroidism, IBS, who presents with increasing fatigue, generalized weakness and abdominal pain. Pt has been followed by Dr. Dietz for treatment of her CLL. 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 Dr. Dietz recommended biopsy of both rib lesion (done 09/12) and bone marrow showing Diffuse large B cell lymphoma, starting anticoagulation for splenic infarct. Once completed PT recommended d/c to rehab. Admission and Anticipated Discharge Date Admission Date: September 11, 2024 Subjective 83 yo female reports no new symptoms. Review of Systems Review of Systems: All systems reviewed & are unremarkable except as noted in HPI & below Physical Exam Physical Exam: GENERAL: NAD EYES lids/conjunctiva normal. HEAD/NECK normocephalic atraumatic, no facial trauma, neck is supple. RESPIRATORY respiratory effort normal, speaks in full sentences, no tripod position, no accessory muscle use. Lungs clear to auscultation without rhonchi, wheezes, rales CARDIAC Regular rate and rhythm, no edema. ABDOMINAL Soft, ND/NT. No evidence of fluid wave. No pulsatile masses on exam, rebound tenderness, Muro sign or pain over Mcburney's point. Results & Data Results & Data Vital Signs (Past 12 Hours) Vital Signs Temp Pulse Pulse Resp BP Pulse Ox O2 Del Method 09/17/24 21:56 36.7 C 87 18 126/68 97 Room Air 09/17/24 19:24 36.9 C 91 H 18 115/63 96 Room Air 09/17/24 17:07 86 09/17/24 15:35 36.6 C 71 18 130/72 96 Room Air 09/17/24 14:03 83 09/17/24 11:42 36.6 C 73 20 121/70 97 Room Air PG Care Time/CCT Total # of Minutes Spent Total Time Spent with Patient: Total time spent is greater than 50% in coordination of care (as documented) at patient's floor/unit and/or counseling patient: Coding Level of Care Code 62790 SUB INP/OBS CARE 3/50MIN Diagnoses Splenic infarct D73.5 CLL (chronic lymphocytic leukemia) C91.10 Asthma J45.909 Hypothyroidism E03.9
[2024-09-18 09:10] LABS: Calcium 9.5 mg/dl (8.6-10.3); Creatinine Clr Calc Pharmacy 49.5 ml/min
[2024-09-18 09:28] LABS: ANTI-Xa, UFH(UnfractionatedHep 0.31 IU/ml (0.3-0.7)
[2024-09-18] MEDS: FOSAPREPITANT DIMEGLUMINE 150 MG in SODIUM CHLORIDE 0.9% 145 ML IV SCH (12:12)
[2024-09-18] MEDS: predniSONE 20 MG TAB PO SCH (12:12)
[2024-09-18] MEDS: PALONOSETRON 0.25 MG, dexAMETHasone 12 MG in DEXTROSE 5% 50 ML IV SCH (12:39)
[2024-09-18] MEDS: CYCLOPHOSPHAMIDE IV SCH (13:40)
[2024-09-18] MEDS: SODIUM CHLORIDE 0.9% IV SCH (13:40)
[2024-09-18] MEDS: DOXORUBICIN HCL IV ONE (14:47)
[2024-09-18] MEDS: vinCRIStine SULFATE 1 MG in SODIUM CHLORIDE 0.9% 50 ML IV SCH (15:02)
--- NOTE | 2024-09-18 22:50 | Hospitalist Progress Note ---
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 -plan on starting anticoagulation after biopsies completed Now on heparin. -pain control with oxycodone -Bone marrow biopsy completed no need for corticosteroids as pain resolved. 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 Anticipate discharge on 09/19 (2) CLL (chronic lymphocytic leukemia): Plan: -Heme-onc Dr. Dietz consult appreciated -Pt had rib soft tissue biopsy 09/12, awaiting path. -Bone marrow biopsy completed on 09/15 -on zanubrutinib will start chemotherapy tomorrow as per oncology based on pathology. (3) Asthma: Plan: -albuterol prn (4) Hypothyroidism: Plan: -levothyroxine Plan Pt is an 83 y/o female with pmh of CLL, asthma, HLD, hypothyroidism, IBS, who presents with increasing fatigue, generalized weakness and abdominal pain. Pt has been followed by Dr. Dietz for treatment of her CLL. 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 Dr. Dietz recommended biopsy of both rib lesion (done 09/12) and bone marrow showing Diffuse large B cell lymphoma, starting anticoagulation for splenic infarct. Once completed PT recommended d/c to rehab. Admission and Anticipated Discharge Date Admission Date: September 11, 2024 Subjective Patient reports no new symptoms. Physical Exam Physical Exam: GENERAL: NAD EYES lids/conjunctiva normal. HEAD/NECK normocephalic atraumatic, no facial trauma, neck is supple. RESPIRATORY respiratory effort normal, speaks in full sentences, no tripod position, no accessory muscle use. Lungs clear to auscultation without rhonchi, wheezes, rales CARDIAC Regular rate and rhythm, no edema. ABDOMINAL Soft, ND/NT. No evidence of fluid wave. No pulsatile masses on exam, rebound tenderness, Muro sign or pain over Mcburney's point. Results & Data Results & Data Vital Signs (Past 12 Hours) Vital Signs Temp Pulse Pulse Resp BP Pulse Ox O2 Del Method 09/18/24 19:48 36.5 C 93 H 16 109/61 93 Room Air 09/18/24 15:39 37.0 C 84 16 103/63 95 Room Air 09/18/24 12:50 86 09/18/24 11:59 36.6 C 81 16 126/70 96 Room Air PG Care Time/CCT Total # of Minutes Spent Total Time Spent with Patient: Total time spent is greater than 50% in coordination of care (as documented) at patient's floor/unit and/or counseling patient: Coding Level of Care Code 16148 SUB INP/OBS CARE 2/35MIN Diagnoses Splenic infarct D73.5 CLL (chronic lymphocytic leukemia) C91.10 Asthma J45.909 Hypothyroidism E03.9
[2024-09-19 06:45] LABS: BUN Creatinine Ratio 43.5 (10-20); Calcium 9.7 mg/dl (8.6-10.3); Creatinine Clr Calc Pharmacy 50.2 ml/min; Potassium 4.3 mmol/L (3.5-5.1)
[2024-09-19 06:53] LABS: ANTI-Xa, UFH(UnfractionatedHep 0.25 IU/ml (0.3-0.7)
[2024-09-19 07:41] LABS: Hematocrit (blood only) 31.6 % (37.0-47.0); Hemoglobin 10.4 g/dl (12.0-16.0); Mean Corpuscular Hemoglobin 30.7 pg (25.0-34.0); Mean Corpuscular Hgb Conc 32.9 g/dL (32.0-36.0); Mean Corpuscular Volume 93.2 fL (80.0-100.0); Mean Platelet Volume 11.5 fL (9.4-12.4); Platelet Count 290 K/uL (130-400); RDW Coefficient of Variation 13.3 % (11.5-14.5); RDW Standard Deviation 44.2 fL (36.4-46.3); Red Blood Count 3.39 M/uL (4.20-5.40); White Blood Count 59.04 K/ul (4.8-10.8)
[2024-09-19 07:42] VITALS: RESP 16
[2024-09-19 07:59] LABS: Basophils # (auto) 0.01 K/uL (0.00-0.20); Immature Granulocytes # (auto) 0.35 K/uL (0.01-0.20); Immature Granulocytes % (auto) 0.6 %; Lymphocytes # (auto) 39.97 K/uL (1.20-3.40); Lymphocytes % (auto) 67.7 %; Monocytes # (auto) 0.86 K/uL (0.11-0.59); Monocytes % (auto) 1.5 %; Neutrophils # (auto) 17.85 K/uL (1.40-6.50); Neutrophils % (auto) 30.2 %; Smudge Cells Present
[2024-09-19] MEDS: APIXABAN 5 MG TABLET PO SCH (10:08)
[2024-09-19 11:38] VITALS: BP 111/60; PULSE 89; TEMP 98.1; O2SAT 95
--- NOTE | 2024-09-22 14:01 | Discharge Summary ---
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 -plan on starting anticoagulation after biopsies completed Now on heparin. -pain control with oxycodone -Bone marrow biopsy completed no need for corticosteroids as pain resolved. 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 Anticipate discharge on 09/19 (2) CLL (chronic lymphocytic leukemia): -Heme-onc Dr. Dietz consult appreciated -Pt had rib soft tissue biopsy 09/12, awaiting path. -Bone marrow biopsy completed on 09/15 -on zanubrutinib will start chemotherapy tomorrow as per oncology based on pathology. (3) Asthma: -albuterol prn (4) Hypothyroidism: -levothyroxine Plan Pt is an 83 y/o female with pmh of CLL, asthma, HLD, hypothyroidism, IBS, who presents with increasing fatigue, generalized weakness and abdominal pain. Pt has been followed by Dr. Dietz for treatment of her CLL. 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 Dr. Dietz recommended biopsy of both rib lesion (done 09/12) and bone marrow showing Diffuse large B cell lymphoma, starting anticoagulation for splenic infarct. Once completed PT recommended d/c to rehab. Admission HPI Per Admitting Provider Pt is an 83 y/o female with pmh of CLL, asthma, HLD, hypothyroidism, IBS, who presents with increasing fatigue, generalized weakness and abdominal pain. Pt has been followed by Dr. Dietz for treatment of her CLL. 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 Pt complaining of left sided abdominal pain on examination over the past week. She has an appetite and denies any nausea or vomiting. She is being admitted for further pain control with follow up by heme-onc along with PT evaluation for ambulatory dysfunction due to progressive weakness. Discharge Exam GENERAL: NAD EYES lids/conjunctiva normal. HEAD/NECK normocephalic atraumatic, no facial trauma, neck is supple. RESPIRATORY respiratory effort normal, speaks in full sentences, no tripod position, no accessory muscle use. Lungs clear to auscultation without rhonchi, wheezes, rales CARDIAC Regular rate and rhythm, no edema. ABDOMINAL Soft, ND/NT. No evidence of fluid wave. No pulsatile masses on exam, rebound tenderness, Muro sign or pain over Mcburney's point. Discharge Plan Discharge Items Patient Disposition: Home - Home Health Services Reason For Visit: ACUTE SPLENIC INFARCT Discharge Diagnosis: acute splenic infarct Condition on Discharge: Good Activity: Resume your previous activity Non-emergency contact: Primary Care Provider Call non-emergency contact if: you have any medication questions Follow-up/Referrals: Ale Aguilera DO [Primary Care Provider] - 09/25/24 9:30 am Diet: Regular Addtl Attending Provider Instructions: Start Eliquis tonight. You will continue prednisone 60 mg daily for 4 days starting tomorrow. Recommend followup with Dr. Dietz for chemotherapy in 3 weeks. Prior to that, we christian set you up to get a Mediport placed prior to your chemotherapy. Pending Studies at Discharge: No Stand-Alone Forms: My [facility], Smoking Cessation Medications and DC Order Prescriptions: New Eliquis 5 mg tablet 5 mg PO BID Qty: 60 0RF Eliquis 5 mg tablet 5 mg PO BID Qty: 60 0RF Magic Mouthwash 300 mL mouthwash 5 ml mucous membrane Q4H PRN (Reason: sore throat) Qty: 300 0RF Rx Instructions: Benadryl 12.5 mg/5 mL oral elixir; Maalox 200 mg-200 mg-20 mg/5 mL oral suspension; Xylocaine Viscous 2 % mucosal solution;[Generic substitution ok] 1:1:1 compound Per 300 mL held in your mouth for one to two minutes before being either spit out or swallowed Eliquis 5 mg tablet 5 mg PO BID Qty: 60 0RF Magic Mouthwash 300 mL mouthwash 5 ml mucous membrane Q4H Qty: 300 0RF Rx Instructions: Benadryl 12.5 mg/5 mL oral elixir; Maalox 200 mg-200 mg-20 mg/5 mL oral suspension; Xylocaine Viscous 2 % mucosal solution;[Generic substitution ok] 1:1:1 compound Per 300 mL hold in your mouth for one to two minutes before being either spit out or swallowed prednisone 20 mg tablet 60 mg PO DAILY Qty: 9 0RF Continued mirtazapine 15 mg tablet 15 mg PO HS albuterol sulfate 90 mcg/actuation HFA aerosol inhaler 2 puff inhalation Q6H PRN (Reason: shortness of breath or wheezing) Qty: 8.5 1RF levothyroxine 75 mcg tablet 75 mcg PO DAILY Qty: 30 3RF ibandronate 150 mg tablet 150 mg PO UD Rx Instructions: 150 mg po monlthy no fill history available allopurinol 300 mg tablet 300 mg PO DAILY oxycodone 5 mg tablet 5 mg PO .EVERY 4-6 HRS PRN (Reason: Pain) omeprazole 40 mg capsule,delayed release(DR/EC) 40 mg PO HS megestrol 40 mg tablet 40 mg PO BID donepezil 10 mg tablet 10 mg PO HS aspirin 81 mg Capsule 81 mg PO HS Discontinued Brukinsa 80 mg capsule 160 mg PO BID Discharge Orders: Discharge Order (Routine); Ordered 09/19/24 Ordered By: Jeronimo Saba/Other Patient Handouts: Apixaban Oral Tablet, Prednisone Oral Tablet, Chemotherapy Safety at Home, Understanding Chemotherapy, Chemotherapy Dc Admission Data Admit Date/Time: 09/11/24 18:29 Attending Provider: Jeronimo Worthington Admit Provider: Dewayne Ann Primary Care Provider: Ale Aguilera Other Providers: Ivory Dietz Other Interventions: Discharge Summary Assessment (RN) Last Done: 09/19/24 10:52 Hospital Stay Data Consultations 09/11/24 18:31 Consult Oncology Routine Diagnostic Imagining Performed 09/11/24 14:26 CT Abd and Pelvis [CT abd pelvis IV con only] Stat 09/12/24 12:30 IR biops softtiss mass/musc US Stat 09/14/24 16:50 CT chest diagnostic wo con Stat 09/15/24 10:00 IR bone marrow bx & asp Urgent Pending Results Patient Have Any Pending Studies at Discharge: No Discharge Instructions Given to Patient (Per Discharging Provider) Start Eliquis tonight. You will continue prednisone 60 mg daily for 4 days starting tomorrow. Recommend followup with Dr. Dietz for chemotherapy in 3 weeks. Prior to that, we christian set you up to get a Mediport placed prior to your chemotherapy. Coding Diagnoses Splenic infarct D73.5 CLL (chronic lymphocytic leukemia) C91.10 Asthma J45.909 Hypothyroidism E03.9
== END 2024-09-19 12:20 | disposition home health service (06) | DRG 841 ==
LOC: ED 13:32 → SUATTDRO 18:29 → 2N 18:29 → 2W 09-17 16:00